=== PATIENT | male | born 1960 | race African-American/Black ===

== ENCOUNTER 2017-05-10 16:10 | Emergency (ER) | payer MEDICARE, MEDICAID ==
[2017-05-10] MEDS ORDERED: Lisinopril 10 MG TAB ONE (16:40)
[2017-05-10 16:57] LABS: #Basophils 0.1 thou/uL (0.0-0.2); #Eosinphils 0.5 thou/uL (0.0-0.7); #Lymphocytes 3.2 thou/uL (1.20-3.40); #Monocytes 0.6 thou/uL (0.11-0.59); #Neutrophils 5.5 thou/uL (1.40-6.50); %Lymphocytes 32.3 % (21.0-51.0); %Monocytes 6.4 % (0.0-10.0); Hematocrit 46.2 % (42.0-52.0); Red Blood Cell (RBC) Count 5.29 mill/uL (4.70-6.10); White Blood Cell (WBC) Count 9.9 thou/uL (4.8-10.8)
[2017-05-10 17:16] LABS: Anion Gap 14 mmol/L (10-20); BUN (Urea Nitrogen) 13 mg/dL (8.4-25.7); Calc. Creatinine Clearance 0 mL/min (70-130); Calcium 9.8 mg/dL (7.8-10.44); Carbon Dioxide 24 mmol/L (22-29); Chloride 105 mmol/L (98-107); Estimated GFR-MDRD 90
== END 2017-05-10 18:30 | disposition home or self-care (01) ==
LOC: ERS 16:10
DX: I10 Essential (primary) hypertension (principal); E11.9 Type 2 diabetes mellitus without complications; E78.5 Hyperlipidemia, unspecified; F17.210 Nicotine dependence, cigarettes, uncomplicated; Z79.4 Long term (current) use of insulin; Z79.899 Other long term (current) drug therapy
CPT/HCPCS: 36415; 80048; 85025; 99283

== ENCOUNTER 2017-07-05 12:30 | Outpatient (CLI) | payer MEDICARE, MEDICAID ==
--- NOTE | 2017-07-05 15:55 | ULT ---
TESTICULAR ULTRASOUND 07/05/17 HISTORY: Hydrocele, unspecified. Patient also complains of left sided testicular pain which comes and goes. FINDINGS/IMPRESSION: The right testicle measures 2.6 cm x 3.5 cm x 2.4 cm with the left testicle measuring 2.2 cm x 3.2 cm x 1.9 cm. No testicular mass is seen bilaterally. There is homogeneous echotexture of each testicle. A few very tiny punctate echogenic foci are seen within the right testicle which may represent tiny punctate calcifications related to microlithiasis. The epididymides demonstrate a normal sonographic appearance bilaterally. There is a minimal amount o f fluid adjacent to each testicle which is slightly greater on the left. There is fluid on the right is probably physiologic in origin with slightly greater fluid on the left which may represent a borde rline very small hydrocele. Doppler evaluation of each testicle with spectral analysis and color flow evaluation demonstrates art erial flow. IMPRESSION: 1. Right testicular microlithiasis. No testicular mass is seen bilaterally, and arterial flow is seen in each testicle. 2. Very small left hydrocele. POS: [facility]
== END 2017-07-05 12:31 | disposition home or self-care (01) ==
LOC: ULT 12:30
PROVIDERS: ATTEND Urology
DX: N43.3 Hydrocele, unspecified (principal); Z87.438 Personal history of other diseases of male genital organs; N50.89 Other specified disorders of the male genital organs
CPT/HCPCS: 76870; 93976

== ENCOUNTER 2017-08-26 10:23 | Emergency (ER) | payer MEDICAID, MEDICARE ==
[2017-08-26 11:13] LABS: #Eosinphils 0.1 thou/uL (0.0-0.7); #Lymphocytes 3.7 thou/uL (1.20-3.40); #Neutrophils 7.8 thou/uL (1.40-6.50); %Basophils 0.4 % (0.0-1.0); %Eosinophils 0.8 % (0.0-10.0); %Lymphocytes 28.9 % (21.0-51.0); %Monocytes 7.8 % (0.0-10.0); %Neutrophils 62.1 % (42.0-75.0); Hemoglobin 13.9 g/dL (14.0-18.0); Mean Corpuscular HGB CONC 32.2 g/dL (32.0-36.0); Mean Corpuscular Hemoglobin 28.2 pg (27.0-31.0); Mean Corpuscular Volume 87.6 fl (80.0-94.0); Mean Platelet Volume 9.6 fL (7.4-10.4); Platelet Count 193 thou/uL (130-400); RBC Distribution Width 12.3 % (11.5-14.5); Red Blood Cell (RBC) Count 4.92 mill/uL (4.70-6.10); White Blood Cell (WBC) Count 12.6 thou/uL (4.8-10.8)
[2017-08-26] MEDS ORDERED: Ondansetron ODT 4 MG TAB ONE (11:27)
[2017-08-26 11:40] LABS: ALT (SGPT) 10 U/L (8-55); AST (SGOT) 11 U/L (5-34); Albumin 3.9 g/dL (3.5-5.0); Alkaline Phosphatase 95 U/L (40-150); Anion Gap 11 mmol/L (10-20); BUN (Urea Nitrogen) 18 mg/dL (8.4-25.7); Bilirubin, Total 0.5 mg/dL (0.2-1.2); Calc. Creatinine Clearance 0 mL/min (70-130); Calcium 10.1 mg/dL (7.8-10.44); Carbon Dioxide 28 mmol/L (22-29); Chloride 106 mmol/L (98-107); Estimated GFR-MDRD Greater than 90; Globulin 3.3 g/dL (2.4-3.5); Glucose 132 mg/dL (70-105); Lipase 65 U/L (8-78); Potassium 3.7 mmol/L (3.5-5.1); Protein, Total 7.2 g/dL (6.0-8.3); Sodium 141 mmol/L (136-145)
== END 2017-08-26 12:09 | disposition home or self-care (01) ==
LOC: ERS 10:23
DX: E86.0 Dehydration (principal); E11.9 Type 2 diabetes mellitus without complications; E78.5 Hyperlipidemia, unspecified; I10 Essential (primary) hypertension; G89.29 Other chronic pain; F17.210 Nicotine dependence, cigarettes, uncomplicated; Z79.891 Long term (current) use of opiate analgesic; Z79.899 Other long term (current) drug therapy; Z79.4 Long term (current) use of insulin
CPT/HCPCS: 36415; 36416; 80053; 83690; 85025; 99284; Q0162

== ENCOUNTER 2017-11-01 08:28 | Outpatient (CLI) | payer MEDICARE, MEDICAID | END 2017-11-01 08:29 | disposition home or self-care (01) | LOC: BICMRI 08:28 | PROVIDERS: ATTEND Physician Assistant Medical | DX: M23.52 Chronic instability of knee, left knee (principal); M54.12 Radiculopathy, cervical region; M54.16 Radiculopathy, lumbar region; M17.12 Unilateral primary osteoarthritis, left knee; M24.10 Other articular cartilage disorders, unspecified site | CPT/HCPCS: 72141; 72148 ==

== ENCOUNTER 2018-01-29 08:29 | Outpatient (CLI) | payer MEDICARE, MEDICAID ==
[2018-01-29 10:51] LABS: Anion Gap 12 mmol/L (10-20); BUN (Urea Nitrogen) 18 mg/dL (8.4-25.7); Calc. Creatinine Clearance 0 mL/min (70-130); Calcium 9.3 mg/dL (7.8-10.44); Carbon Dioxide 24 mmol/L (22-29); Chloride 109 mmol/L (98-107); Estimated GFR-MDRD 53; Glucose 223 mg/dL (70-105); Potassium 4.6 mmol/L (3.5-5.1); Sodium 140 mmol/L (136-145)
== END 2018-01-29 08:30 | disposition home or self-care (01) ==
LOC: LABBT 08:29
PROVIDERS: ATTEND Neurological Surgery
DX: Z01.818 Encounter for other preprocedural examination (principal); M54.12 Radiculopathy, cervical region
CPT/HCPCS: 80048; 93005; 93010

== ENCOUNTER 2018-02-03 05:55 | Day surgery (SDC) | payer MEDICARE, MEDICAID ==
[2018-01-29 08:51] VITALS: BMI 36.5
[2018-02-03] MEDS ORDERED: Levofloxacin 500 mg/D5W 100 ml Premix Bag ONE (06:16)
[2018-02-03] MEDS ORDERED: Clindamycin/D5W 900 mg/50 ml Premix Bag ONE (06:16)
[2018-02-03] MEDS ORDERED: Thrombin 5000 UNITS/5 ML VIAL ONE (06:51)
[2018-02-03] MEDS ORDERED: Fentanyl 100 MCG/2 ML VIAL ONE ×4 (06:55→08:49)
[2018-02-03] MEDS ORDERED: Midazolam HCl 2 mg/2 ml Vial ONE (06:57)
--- NOTE | 2018-02-03 08:36 | OP ---
DATE OF PROCEDURE: 02/03/2018 SURGEON: Sid Urbina M.D. SALESPERSON FLYING SQUAD: Jacek Donato PA-C. INDICATION: Pain. DIAGNOSIS: Cervical radiculopathy. PROCEDURE: Anterior cervical discectomy and fusion C6-7. ANESTHESIA: General. TECHNIQUE: The patient was brought into the operating room and placed under general anesthesia. He was placed on the table in supine position. A transverse incision was planned over the lateral aspec t of the neck on the right. After prepping and draping and after an appropriate operative pause, the incision was created. The underlying platysma muscle was identified and incised. A blunt tissue pl ane anterior to the sternocleidomastoid muscle was used to gain access to the prevertebral space. Se lf-retaining retractors were placed in the wound for optimal exposure. After confirming the appropri ate level with C-arm fluoroscopy, an annulotomy was performed in the C6-7 disk space. All disk mater ial as well as anterior and posterior osteophytes were removed. After a complete decompression, a C6 -7 a 6-mm lordotic PEEK cage packed with allograft and autograft material was placed within the inter body space. An anterior cervical plate was then fashioned to the front of the spine and secured with a total of 4 fixed screws. Midline and lateral structures were inspected and found to be free from significant trauma. The wound was irrigated. Hemostasis was maintained throughout. The wound was t hen closed in anatomic layers and a pressure dressing was applied. There were no known procedural complications.
[2018-02-03] MEDS ORDERED: Morphine 4 MG/ML VIAL ONE ×2 (08:56→09:44)
[2018-02-03] MEDS ORDERED: Ondansetron HCl/PF 4 MG/2 ML Vial ONE (09:44)
[2018-02-03] MEDS ORDERED: Glycopyrrolate 0.2 MG/ML 5 ML SYRINGE ONE (09:44)
[2018-02-03] MEDS ORDERED: PROPOFOL 200 MG/20 ML VIAL ONE (09:44)
[2018-02-03] MEDS ORDERED: Lidocaine 1% PF 5 ML VIAL ONE ×2 (09:44)
[2018-02-03] MEDS ORDERED: PROVENTIL INHALER 6.7 G (200 INHALATIONS) ONE (09:44)
== END 2018-02-03 11:10 | disposition hospice, home (50) ==
LOC: SDC 05:55
PROVIDERS: ATTEND Neurological Surgery
PROC: 0RG10A0 Fusion of Cervical Vertebral Joint with Interbody Fusion Device, Anterior Approach, Anterior Column, Open Approach (ICD-10-PCS; principal; 2018-02-03)
PROC: 0RT30ZZ Resection of Cervical Vertebral Disc, Open Approach (ICD-10-PCS; 2018-02-03)
DX: M54.12 Radiculopathy, cervical region (principal); M54.16 Radiculopathy, lumbar region; K21.9 Gastro-esophageal reflux disease without esophagitis; F17.210 Nicotine dependence, cigarettes, uncomplicated; N52.9 Male erectile dysfunction, unspecified; I12.9 Hypertensive chronic kidney disease with stage 1 through stage 4 chronic kidney disease, or unspecified chronic kidney disease; E11.22 Type 2 diabetes mellitus with diabetic chronic kidney disease; N18.1 Chronic kidney disease, stage 1; Z79.4 Long term (current) use of insulin; Z79.51 Long term (current) use of inhaled steroids; Z79.899 Other long term (current) drug therapy; Z88.0 Allergy status to penicillin
CPT/HCPCS: 20930; 20937; 22551; 22853; 76001; 82962; 96374 ×3; C1713; C1776; 36416; J0131; J1956; J2250; J2270; J3010; J3490

== ENCOUNTER 2018-05-01 10:52 | Outpatient (CLI) | payer MEDICARE, MEDICAID ==
--- NOTE | 2018-05-01 12:36 | RAD ---
CERVICAL SPINE 3 VIEWS: HISTORY: A 58-year-old male with a history of cervical radiculopathy, M54.12. Followup after neck surgery. FINDINGS: Anterior cervical fusion changes noted at C6-C7. There is some multilevel disk-osteophytosis as well as some minimal uncovertebral and facet arthrosis changes. No significant malalignment. No signifi cant abnormal prevertebral soft tissue swelling. IMPRESSION: Anterior cervical fusion changes at C6-C7. Generalized spondylosis. POS: [facility]
== END 2018-05-01 10:53 | disposition home or self-care (01) ==
LOC: TBSIIMAG 10:52
PROVIDERS: ATTEND Neurological Surgery
DX: M47.22 Other spondylosis with radiculopathy, cervical region (principal); Z98.1 Arthrodesis status
CPT/HCPCS: 72040

== ENCOUNTER 2018-05-14 12:25 | Outpatient (CLI) | payer MEDICARE, MEDICAID ==
[2018-05-14 14:20] LABS: Hemoglobin 13.2 g/dL (14.0-18.0); Mean Corpuscular HGB CONC 30.2 g/dL (32.0-36.0); Mean Corpuscular Volume 89.3 fL (78.0-98.0); Mean Platelet Volume 10.6 fL (7.4-10.4); Platelet Count 207 thou/uL (130-400); RBC Distribution Width 12.6 % (11.5-14.5); Red Blood Cell (RBC) Count 4.91 mill/uL (4.70-6.10); White Blood Cell (WBC) Count 9.3 thou/uL (4.8-10.8)
[2018-05-14 14:29] LABS: INR-International Normal Ratio 0.9; PTT 51.3 SEC (22.9-36.1); Prothrombin Time 12.2 SEC (12.0-14.7)
[2018-05-14 14:33] LABS: Bilirubin Negative (Negative); Blood, Urine Small (Negative); Clarity CLEAR (Clear); Glucose, Urine (Dipstick) Negative (Negative); Leukocyte Small (Negative); Nitrite Positive (Negative); Protein, Urine (Dipstick) 100 mg/dL (Neg-Trace); Specific Gravity, Urine 1.017 (1.002-1.036); Urobilinogen 0.2 mg/dL (0.2-1.0); pH, Urine 6.5 (5.0-9.0)
[2018-05-14 14:35] LABS: Bacteria/HPF 4+ HPF (None Seen); Hyaline Casts/LPF 4-6 HYALINE CAST LPF (0-3 Hyaline); Pathc Cast-AUWi Flag 0.58 (0-2.49); RBC/HPF 0-3 HPF (0-3)
[2018-05-14 14:45] LABS: Anion Gap 11 mmol/L (10-20); BUN (Urea Nitrogen) 22 mg/dL (8.4-25.7); Calc. Creatinine Clearance 0 mL/min (70-130); Calcium 9.3 mg/dL (7.8-10.44); Carbon Dioxide 24 mmol/L (22-29); Chloride 108 mmol/L (98-107); Estimated GFR-MDRD 67; Glucose 150 mg/dL (70-105); Potassium 4.4 mmol/L (3.5-5.1); Sodium 139 mmol/L (136-145)
[2018-05-14 14:46] LABS: Transitional Epithelial 0-3 HPF (0-3)
--- NOTE | 2018-05-17 10:30 | EKG ---
Test Reason : Blood Pressure : / mmHG Vent. Rate : 073 BPM Atrial Rate : 073 BPM P-R Int : 136 ms QRS Dur : 106 ms QT Int : 400 ms P-R-T Axes : 028 -41 016 degrees QTc Int : 440 ms Normal sinus rhythm Left axis deviation Incomplete right bundle branch block Voltage criteria for left ventricular hypertrophy Abnormal ECG When compared with ECG of 29-JAN-2018 09:39, No significant change was found Confirmed by DR. Bety OSHEA ([id number]) on 05/17/2018 10:29:54 AM Referred By: SHREYA Confirmed By:DR. Bety OSHEA
== END 2018-05-14 12:26 | disposition home or self-care (01) ==
LOC: LABBT 12:25
PROVIDERS: ATTEND Urology
DX: Z01.818 Encounter for other preprocedural examination (principal); N40.1 Benign prostatic hyperplasia with lower urinary tract symptoms; R31.29 Other microscopic hematuria; Z87.440 Personal history of urinary (tract) infections
CPT/HCPCS: 80048; 81001; 85027; 85610; 85730; 87077; 87086; 87186; 93005; 93010

== ENCOUNTER 2018-07-21 06:32 | Outpatient (CLI) | payer MEDICARE, MEDICAID ==
[2018-07-21 15:55] LABS: Hemoglobin 13.6 g/dL (14.0-18.0); Mean Corpuscular HGB CONC 31.9 g/dL (32.0-36.0); Mean Corpuscular Hemoglobin 28.3 pg (27.0-31.0); Mean Corpuscular Volume 88.8 fL (78.0-98.0); Mean Platelet Volume 9.7 fL (7.4-10.4); Platelet Count 209 thou/uL (130-400); RBC Distribution Width 11.9 % (11.5-14.5); White Blood Cell (WBC) Count 8.4 thou/uL (4.8-10.8)
[2018-07-21 16:02] LABS: INR-International Normal Ratio 0.9; Prothrombin Time 12.5 SEC (12.0-14.7)
[2018-07-21 16:04] LABS: Bilirubin Negative (Negative); Blood, Urine Negative (Negative); Clarity CLEAR (Clear); Glucose, Urine (Dipstick) 100 mg/dL (Negative); Leukocyte Negative (Negative); Nitrite Negative (Negative); Protein, Urine (Dipstick) 30 mg/dL (Neg-Trace); Specific Gravity, Urine 1.022 (1.002-1.036)
[2018-07-21 16:07] LABS: Bacteria/HPF None Seen HPF (None Seen); Hyaline Casts/LPF 0-3 HYALINE CAST LPF (0-3 Hyaline); Pathc Cast-AUWi Flag 0.14 (0-2.49); Squamous Epithelial 0-3 HPF (0-3); WBC/HPF 0-3 HPF (0-3)
[2018-07-21 16:13] LABS: Anion Gap 14 mmol/L (10-20); BUN (Urea Nitrogen) 16 mg/dL (8.4-25.7); Calc. Creatinine Clearance 0 mL/min (70-130); Calcium 9.6 mg/dL (7.8-10.44); Carbon Dioxide 25 mmol/L (22-29); Chloride 104 mmol/L (98-107); Estimated GFR-MDRD 65; Glucose 146 mg/dL (70-105); Potassium 5.1 mmol/L (3.5-5.1); Sodium 138 mmol/L (136-145)
--- NOTE | 2018-07-21 16:51 | RAD ---
CHEST 2 VIEWS: COMPARISON: 06/13/2016. HISTORY: Preoperative exam. FINDINGS: Normal cardiac silhouette. Pulmonary vessels and hilum are normal. Costophrenic angles are clear. No masses or consolidation. No pneumothorax or osseous abnormalities. Cervical fusion hardware is n oted. IMPRESSION: No acute cardiopulmonary process. POS: [facility]
== END 2018-07-21 06:33 | disposition home or self-care (01) ==
LOC: LABBT 06:32
PROVIDERS: ATTEND Urology
DX: Z01.818 Encounter for other preprocedural examination (principal); N40.1 Benign prostatic hyperplasia with lower urinary tract symptoms; N52.9 Male erectile dysfunction, unspecified; N43.3 Hydrocele, unspecified; R31.29 Other microscopic hematuria; R35.0 Frequency of micturition; E13.9 Other specified diabetes mellitus without complications; N35.819 Other urethral stricture, male, unspecified site; Z87.891 Personal history of nicotine dependence; Z87.440 Personal history of urinary (tract) infections
CPT/HCPCS: 71046; 80048; 81001; 85027; 85610; 85730; 87086; 93005; 93010

== ENCOUNTER 2018-07-29 16:19 | Outpatient (CLI) | payer MEDICARE, MEDICAID | END 2018-07-29 16:20 | disposition home or self-care (01) | LOC: LABBT 16:19 | PROVIDERS: ATTEND Urology | DX: Z01.812 Encounter for preprocedural laboratory examination (principal); N43.3 Hydrocele, unspecified; R31.29 Other microscopic hematuria; R35.0 Frequency of micturition; N35.819 Other urethral stricture, male, unspecified site; N40.1 Benign prostatic hyperplasia with lower urinary tract symptoms; N52.9 Male erectile dysfunction, unspecified; E13.9 Other specified diabetes mellitus without complications; Z87.440 Personal history of urinary (tract) infections; Z87.891 Personal history of nicotine dependence | CPT/HCPCS: 86850; 86900; 86901 ==

== ENCOUNTER 2018-08-04 07:29 | Observation (INO) | payer MEDICARE, MEDICAID ==
[2018-08-04] MEDS ORDERED: Sodium Chloride 0.9% 100 ML ONE (08:59)
[2018-08-04] MEDS ORDERED: cefTRIAXone\\ROCEPHIN 2 GM VIAL ONE (08:59)
[2018-08-04] MEDS ORDERED: Fentanyl 100 MCG/2 ML VIAL ONE (09:59)
[2018-08-04] MEDS ORDERED: Midazolam HCl 2 mg/2 ml Vial ONE (09:59)
[2018-08-04] MEDS ORDERED: Iothalamate Meglumine 60% 50 ML VIAL FS ONE (10:30)
[2018-08-04] MEDS ORDERED: Acetaminophen 500 MG TAB PO PRN (11:34)
[2018-08-04] MEDS ORDERED: Insulin Regular 300 UNITS/3 ML VIAL SC PRN (11:34)
[2018-08-04] MEDS ORDERED: Bisacodyl 10 MG SUPP PR PRN (11:34)
[2018-08-04] MEDS ORDERED: hydrALAZINE 20 MG/ML VIAL SLOW IVP PRN ×2 (11:34)
[2018-08-04] MEDS ORDERED: HYDROcodone/Acetaminophen 5/325 mg Tablet PO PRN ×2 (11:34)
[2018-08-04] MEDS ORDERED: Mag-Al 1200 mg/1200 mg/30 ML UDCUP PO PRN (11:34)
[2018-08-04] MEDS ORDERED: diphenhydrAMINE 50 MG/ML VIAL IVP PRN (11:34)
[2018-08-04] MEDS ORDERED: Oxybutynin 5 MG TAB PO PRN (11:34)
[2018-08-04] MEDS ORDERED: Dextrose 50% Abboject 50 ML SYRINGE SLOW IVP PRN (11:34)
[2018-08-04] MEDS ORDERED: Ondansetron PF 4 MG/2 ML Vial IVP PRN (11:34)
[2018-08-04] MEDS ORDERED: Dextrose 5% in Water 1,000 ML IV PRN (11:34)
[2018-08-04] MEDS ORDERED: BECLOMETHASONE DIPROPIONATE 10.6 GM IH PRN (11:38)
[2018-08-04] MEDS ORDERED: Fluticasone Propionate Nasal Spray 16 gm Bottle NASAL PRN (11:38)
[2018-08-04] MEDS ORDERED: Ondansetron HCl/PF 4 MG/2 ML Vial IVP PRN (11:48)
[2018-08-04] MEDS ORDERED: Promethazine HCl 25 MG/ML VIAL SLOW IVP PRN (11:48)
[2018-08-04 12:11] LABS: #Basophils 0.1 thou/uL (0.0-0.2); #Eosinphils 0.5 thou/uL (0.0-0.7); #Lymphocytes 4.1 thou/uL (1.20-3.40); #Monocytes 0.8 thou/uL (0.11-0.59); #Neutrophils 6.3 thou/uL (1.40-6.50); %Basophils 0.9 % (0.0-1.0); %Eosinophils 4.1 % (0.0-10.0); %Lymphocytes 34.9 % (21.0-51.0); %Monocytes 6.4 % (0.0-10.0); %Neutrophils 53.7 % (42.0-75.0); Hemoglobin 12.2 g/dL (14.0-18.0); Mean Corpuscular HGB CONC 31.8 g/dL (32.0-36.0); Mean Corpuscular Hemoglobin 28.3 pg (27.0-31.0); Mean Corpuscular Volume 88.8 fL (78.0-98.0); Platelet Count 206 thou/uL (130-400); RBC Distribution Width 11.9 % (11.5-14.5); Red Blood Cell (RBC) Count 4.32 mill/uL (4.70-6.10); White Blood Cell (WBC) Count 11.7 thou/uL (4.8-10.8)
--- NOTE | 2018-08-04 12:11 | OP ---
DATE OF PROCEDURE: 08/04/2018 PRIMARY CARE PHYSICIAN: Dr. Varsha Oden. PREOPERATIVE DIAGNOSES: 1. A 58-year-old male with history of recurrent urinary tract infection. 2. History of benign prostatic hyperplasia. 3. History of proximal penile/bulbar urethral stricture, 14-Togolese caliber. POSTOPERATIVE DIAGNOSES: 1. A 58-year-old male with history of recurrent urinary tract infection. 2. History of benign prostatic hyperplasia. 3. History of proximal penile/bulbar urethral stricture, 14-Togolese caliber. PROCEDURES PERFORMED: Cystoscopy, transurethral resection of prostate, urethral stricture dilatation, direct vision internal urethrotomy, and 22-Togolese 3-way Oneil catheter placement. ANESTHESIA: General. COMPLICATIONS: None apparent. DISPOSITION: To recovery room in stable condition. SPECIMEN: TUR of prostate. INTRAOPERATIVE FINDINGS: 1. Bulbar proximal penile urethral stricture approximately 14-Togolese as previous cystoscopy noted. 2. Mild BPH component with high median bar. 3. Bladder grossly unremarkable. INDICATIONS FOR PROCEDURE AND HISTORY: Mr. Charles is a 58-year-old male with history of diabetes and chronic back pain, who initially presented for evaluation of subclinical left mild hydrocele. He was subsequently found to have a bulbar stricture and recurrent UTI. He has had multiple recurrent UTIs, quinolone resistant, currently on Bactrim single strength for recurrent UTI. Urine culture is negative. He presents today for direct vision internal urethrotomy and transurethral resection of prostate. He desired to proceed with TURP component , so that he may discontinue his BPH meds. Risks and complications and indications for the procedure was reviewed with him in detail including, but not limited to, bleeding, pain, infection, injury to adjacent organs, urosepsis, possible clot retention, incontinence, persistent recurrent UTI, and possible secondary procedure. Moreover, risks and complications of general anesthesia and surgery including PE, DVT, perioperative morbidity, mortality, and DVT was reviewed with him in detail. He has been fully informed regarding recurrent nature of urethral stricture disease and desire to proceed with trial of direct vision internal urethrotomy. DESCRIPTION OF PROCEDURE: After an informed consent was signed, the patient was taken to the operating room, placed in a dorsal lithotomy position with the genitalia area prepped and draped in the usual surgical sterile fashion. Broad-spectrum antibiotics and bilateral ANISH hose SCDs were placed. A 21-Togolese cystoscope was passed without difficulty, again demonstrating a proximal penile bulbar urethral stricture, 14-Togolese caliber. I was able to bypass the stricture without significant trauma. Prostatic urethra was entered demonstrating bilobar hyperplasia, mildly obstructing with high median bar. Bladder was entered, which demonstrated no evidence of bladder lesions, stones, or tumors. The UOs were well away from the bladder neck. At this time, I did passively dilated the stricture to 25-Togolese sheath. We subsequently passed a 26-Togolese continuous resectoscope with a visual obturator without difficulty. We performed a transurethral resection of prostate in a classic Joseluis fashion with gyrus bipolar. Although, his prostate was small with mild BPH component, he did have a high median bar, tight bladder neck. With subsequent resection of the prostate performed, which demonstrated wide bladder neck at the end of the procedure. Good hemostasis was obtained and all prostatic chips were evacuated with Ellik evacuator. I re-staged his bulbar proximal penile urethral stricture, although was passively dilated. There was some annular soft residual stricture. Therefore, direct vision internal urethrotomy scope was passed under direct visualization and a cold knife was utilized to release the bulbar stricture uneventfully. With the wire in-situ in the bladder, I passed a 22- Togolese 3-way Oneil catheter without significant issues. A 30 mL was insufflated and his continuous bladder irrigation started with clear output. He will be observed overnight with CBI. If clear, we will discharge with indwelling Oneil catheter to gravity for approximately 1 week. We will cover him with antibiotics based on his previous urine culture sensitivity. Job ID: [id number] [facility]
[2018-08-04 12:46] LABS: Anion Gap 14 mmol/L (10-20); BUN (Urea Nitrogen) 14 mg/dL (8.4-25.7); Calc. Creatinine Clearance 139 mL/min (70-130); Calcium 8.6 mg/dL (7.8-10.44); Carbon Dioxide 19 mmol/L (22-29); Chloride 111 mmol/L (98-107); Estimated GFR-MDRD Greater than 90; Glucose 84 mg/dL (70-105); Sodium 140 mmol/L (136-145)
[2018-08-04] MEDS: Sodium Chloride 0.9% 1,000 ML IV SCH ×2 (14:35→19:56)
[2018-08-04] MEDS: HYDROcodone/Acetaminophen 10/325 mg Tablet PO SCH ×3 (14:48→20:00)
[2018-08-04] MEDS ORDERED: Ondansetron PF 4 MG/2 ML Vial ONE (15:52)
[2018-08-04] MEDS ORDERED: PROPOFOL 200 MG/20 ML VIAL ONE (15:52)
[2018-08-04] MEDS ORDERED: Glycopyrrolate 0.2 MG/ML 5 ML SYRINGE ONE (15:52)
[2018-08-04] MEDS ORDERED: Lidocaine 1% PF 5 ML VIAL ONE (15:52)
[2018-08-04] MEDS ORDERED: Rocuronium Bromide 10 MG/ML (10ML VIAL) ONE (15:52)
[2018-08-04 16:54] VITALS: BMI 36.7
[2018-08-04] MEDS: metFORMIN 500 MG TAB PO SCH (17:45)
[2018-08-04] MEDS: Gemfibrozil 600 MG TAB PO SCH (17:45)
[2018-08-04] MEDS ORDERED: Mometasone Furoate 120 PUFF 220 MCG INH PRN (18:30)
[2018-08-04] MEDS: Lisinopril 20 MG TAB PO SCH (20:00)
[2018-08-04] MEDS: Docusate 100 MG CAP PO SCH (20:01)
[2018-08-04] MEDS: Famotidine/PF 20 mg/2ml Vial SLOW IVP SCH (20:01)
[2018-08-04] MEDS: Cyclobenzaprine 10 MG TAB PO SCH (20:01)
[2018-08-04] MEDS ORDERED: Rosuvastatin 20 MG TAB PO SCH (21:00)
[2018-08-04] MEDS ORDERED: TRAMADOL HCL 300 MG PO SCH (21:00)
[2018-08-04] MEDS ORDERED: Dutasteride 0.5 MG CAP PO SCH (21:00)
[2018-08-04] MEDS ORDERED: Insulin Glargine 40 UNITS in Pre-Filled Syringe 1 EACH SC SCH (21:00)
[2018-08-04] MEDS ORDERED: Non-Formulary Item 1 EACH (Insulin Glargine,Hum.Rec.Anlog [Lantus Solostar] 40 UNIT) SQ SCH (21:00)
[2018-08-05] MEDS: Gemfibrozil 600 MG TAB PO SCH (06:33)
[2018-08-05 07:41] LABS: #Eosinphils 0.4 thou/uL (0.0-0.7); #Lymphocytes 3.2 thou/uL (1.20-3.40); #Monocytes 0.6 thou/uL (0.11-0.59); #Neutrophils 4.1 thou/uL (1.40-6.50); %Basophils 0.6 % (0.0-1.0); %Eosinophils 5.1 % (0.0-10.0); %Lymphocytes 37.9 % (21.0-51.0); %Monocytes 7.5 % (0.0-10.0); Hemoglobin 11.1 g/dL (14.0-18.0); Mean Corpuscular HGB CONC 32.5 g/dL (32.0-36.0); Mean Corpuscular Hemoglobin 28.3 pg (27.0-31.0); Mean Corpuscular Volume 87.1 fL (78.0-98.0); Mean Platelet Volume 9.6 fL (7.4-10.4); Platelet Count 194 thou/uL (130-400); RBC Distribution Width 11.9 % (11.5-14.5); Red Blood Cell (RBC) Count 3.92 mill/uL (4.70-6.10); White Blood Cell (WBC) Count 8.4 thou/uL (4.8-10.8)
[2018-08-05 07:55] LABS: Anion Gap 10 mmol/L (10-20); BUN (Urea Nitrogen) 12 mg/dL (8.4-25.7); Calc. Creatinine Clearance 156 mL/min (70-130); Calcium 8.2 mg/dL (7.8-10.44); Carbon Dioxide 23 mmol/L (22-29); Chloride 112 mmol/L (98-107); Estimated GFR-MDRD Greater than 90; Glucose 130 mg/dL (70-105); Potassium 4.1 mmol/L (3.5-5.1); Sodium 141 mmol/L (136-145)
[2018-08-05] MEDS: metFORMIN 500 MG TAB PO SCH (08:32)
[2018-08-05] MEDS: Sodium Chloride 0.9% 1,000 ML IV SCH (08:34)
[2018-08-05] MEDS ORDERED: Gabapentin 300 MG CAP PO SCH (09:00)
[2018-08-05] MEDS ORDERED: Amlodipine 5 MG TAB PO SCH (09:00)
[2018-08-05] MEDS ORDERED: Hydrochlorothiazide 25 MG TAB PO SCH (09:00)
[2018-08-05] MEDS: HYDROcodone/Acetaminophen 10/325 mg Tablet PO SCH (09:57)
[2018-08-05] MEDS: Cyclobenzaprine 10 MG TAB PO SCH (09:59)
[2018-08-05] MEDS: Docusate 100 MG CAP PO SCH (10:00)
[2018-08-05] MEDS: Famotidine/PF 20 mg/2ml Vial SLOW IVP SCH (10:00)
[2018-08-05] MEDS ORDERED: cefTRIAXone\\ROCEPHIN 1 GM in Sodium Chloride 0.9% 100 ML IVPB SCH (10:00)
[2018-08-05] MEDS: Lisinopril 20 MG TAB PO SCH (10:05)
[2018-08-05 11:32] VITALS: BP 138/80; TEMP 97.7
--- NOTE | 2018-08-06 04:53 | DIS ---
DATE OF ADMISSION: 08/04/2018 DATE OF DISCHARGE: 08/05/2018 BRIEF HOSPITAL COURSE: Mr. Charles is a 58-year-old male with history of BPH and dual medical therapy, urethral stricture with recurrent E coli UTI. The patient underwent cardiac clearance, underwent transurethral resection of prostate, direct vision internal urethrotomy. This morning, his CBI was held, urine output has remained clear. His vital signs are stable. Labs stable with no significant hematuria component of concern. On morning rounds, his vital signs are stable. Pain well controlled. Urine output is clear yellow. He agrees to be discharged home. Pathology is pending. PROCEDURES: Cystoscopy, transurethral resection of prostate, direct vision internal urethrotomy. DISPOSITION: Home with self-care. DISCHARGE MEDICATIONS: He may resume his home medications, no aspirin and ibuprofen products. He may discontinue his Avodart and Flomax. DISCHARGE INSTRUCTIONS: The patient was discharged with indwelling urethral Oneil catheter to gravity. His CBI port was plugged. Leg bag and gravity bag instructions were provided. followup appointment next Saturday, August 13 at 1 p.m. for catheter removal, voiding trial. Job ID: [id number] [facility]
== END 2018-08-05 12:00 | disposition home or self-care (01) ==
LOC: SDC 07:29 → SURG A 11:34
PROVIDERS: ADMIT Urology; ATTEND Urology
PROC: 0VT08ZZ Resection of Prostate, Via Natural or Artificial Opening Endoscopic (ICD-10-PCS; principal; 2018-08-04)
DX: N40.1 Benign prostatic hyperplasia with lower urinary tract symptoms (principal); N13.8 Other obstructive and reflux uropathy; N35.912 Unspecified bulbous urethral stricture, male; N39.0 Urinary tract infection, site not specified; N52.9 Male erectile dysfunction, unspecified; F17.210 Nicotine dependence, cigarettes, uncomplicated; G89.29 Other chronic pain; M54.9 Dorsalgia, unspecified; K21.9 Gastro-esophageal reflux disease without esophagitis; E78.5 Hyperlipidemia, unspecified; I12.9 Hypertensive chronic kidney disease with stage 1 through stage 4 chronic kidney disease, or unspecified chronic kidney disease; E11.22 Type 2 diabetes mellitus with diabetic chronic kidney disease; N18.1 Chronic kidney disease, stage 1; N43.3 Hydrocele, unspecified; E66.01 Morbid (severe) obesity due to excess calories; Z68.36 Body mass index [BMI] 36.0-36.9, adult; Z79.2 Long term (current) use of antibiotics; Z79.4 Long term (current) use of insulin; Z79.899 Other long term (current) drug therapy; Z88.0 Allergy status to penicillin; Z88.1 Allergy status to other antibiotic agents
CPT/HCPCS: 52601; 80048 ×2; 82962 ×2; 85025 ×2; 88305; 88341; 88342; 96361 ×2; 96374; 96375; 96376; C1769; G0378; 36415; 36416; J0696; J1825; J2001; J2250; J2405; J2704; J3010; J7050; Q9961; S0028

== ENCOUNTER 2018-11-18 12:28 | Outpatient (CLI) | payer MEDICARE, MEDICAID ==
--- NOTE | 2018-11-18 14:06 | RAD ---
Chest 2 views HISTORY: Preop. COMPARISON: 07/21/2018. FINDINGS: Cardiac silhouette and pulmonary vasculature are unremarkable. Mediastinum is midline. No c onfluent airspace consolidation, pneumothorax, or pleural fluid. Postoperative changes lower cervical spine. Degenerative changes thoracic spine. IMPRESSION: No active cardiopulmonary abnormalities are demonstrated.
[2018-11-18 14:42] LABS: Bilirubin Negative (Negative); Blood, Urine Moderate (Negative); Clarity CLOUDY (Clear); Glucose, Urine (Dipstick) Negative (Negative); Hemoglobin 11.6 g/dL (14.0-18.0); Leukocyte Negative (Negative); Mean Corpuscular Hemoglobin 28.4 pg (27.0-31.0); Mean Corpuscular Volume 86.2 fL (78.0-98.0); Mean Platelet Volume 10.1 fL (7.4-10.4); Nitrite Negative (Negative); Platelet Count 213 thou/uL (130-400); Protein, Urine (Dipstick) 100 mg/dL (Neg-Trace); RBC Distribution Width 11.9 % (11.5-14.5); Red Blood Cell (RBC) Count 4.08 mill/uL (4.70-6.10); Specific Gravity, Urine 1.016 (1.002-1.036); Urobilinogen 0.2 mg/dL (0.2-1.0); White Blood Cell (WBC) Count 9.4 thou/uL (4.8-10.8)
[2018-11-18 14:45] LABS: Bacteria/HPF None Seen HPF (None Seen); Pathc Cast-AUWi Flag 1.76 (0-2.49); RBC/HPF 0-3 HPF (0-3)
[2018-11-18 14:50] LABS: PTT 62.3 SEC (22.9-36.1); Prothrombin Time 13.2 SEC (12.0-14.7)
[2018-11-18 14:57] LABS: Hyaline Casts/LPF 0-3 HYALINE CAST LPF (0-3 Hyaline); Other Casts/LPF 0-3 COARSE GRAN LPF (0-3 Hyaline); Renal Epithelial 0-3 HPF (0-3)
[2018-11-18 15:18] LABS: Anion Gap 13 mmol/L (10-20); BUN (Urea Nitrogen) 18 mg/dL (8.4-25.7); Calc. Creatinine Clearance 0 mL/min (70-130); Calcium 9.2 mg/dL (7.8-10.44); Carbon Dioxide 23 mmol/L (22-29); Chloride 107 mmol/L (98-107); Estimated GFR-MDRD 39; Glucose 221 mg/dL (70-105); Potassium 3.7 mmol/L (3.5-5.1); Sodium 139 mmol/L (136-145)
== END 2018-11-18 12:29 | disposition home or self-care (01) ==
LOC: LABBT 12:28
PROVIDERS: ATTEND Urology
DX: Z01.818 Encounter for other preprocedural examination (principal); C61 Malignant neoplasm of prostate
CPT/HCPCS: 71046; 80048; 81001; 84153; 85027; 85610; 85730; 87081; 87086; 93005; 93010

== ENCOUNTER 2018-11-25 13:41 | Outpatient (CLI) | payer MEDICARE, MEDICAID ==
--- NOTE | 2018-11-25 15:45 | ULT ---
Renal ultrasound: 11/25/2018 COMPARISON: None HISTORY: Hematuria, urinary tract infection, renal insufficiency TECHNIQUE: Multiplanar hernández scale sonographic imaging of the kidneys and urinary bladder obtained. FINDINGS: Right kidney measures 9.9 x 5.7 x 5.8 cm and left kidney measures 10.9 x 6.7 x 6.6 cm. No hydronephrosis on either side. There is a punctate echogenic focus within the superior and within the inferior aspect of the right renal cortex, suggesting punctate calcifications. A small left renal cyst measures 1.5 x 1.4 x 1.3 cm. Urinary bladder is partially decompressed and gr ossly unremarkable. IMPRESSION: No hydronephrosis. Transcribed Date/Time: 11/25/2018 4:22 PM
== END 2018-11-25 13:42 | disposition home or self-care (01) ==
LOC: BICULT 13:41
PROVIDERS: ATTEND Urology
DX: R31.29 Other microscopic hematuria (principal); N28.9 Disorder of kidney and ureter, unspecified; Z87.440 Personal history of urinary (tract) infections
CPT/HCPCS: 76770

== ENCOUNTER 2018-12-01 06:39 | Day surgery (SDC) | payer MEDICARE, MEDICAID ==
[2018-11-18 12:57] VITALS: BMI 33.5
[2018-12-01] MEDS ORDERED: MEROPENEM 1 GM/50 ML 1 GM in Premix Bag 1 BAG IVPB SCH (08:00)
[2018-12-01] MEDS ORDERED: Fentanyl 100 MCG/2 ML VIAL ONE (09:28)
[2018-12-01] MEDS ORDERED: Propofol 500 MG/50 ML VIAL ONE (09:28)
[2018-12-01] MEDS ORDERED: Phenazopyridine HCl 97.5 MG TABLET ONE (11:10)
--- NOTE | 2018-12-01 11:39 | OP ---
DATE OF PROCEDURE: 12/01/2018 PREOPERATIVE DIAGNOSES: 1. Pathologic T1a [place] score 3+3, status post transurethral resection of the prostate. 2. History of urethral stricture, status post direct visual internal urethrotomy .. POSTOPERATIVE DIAGNOSES: 1. Pathologic T1a Corazon score 3+3, status post transurethral resection of the prostate. 2. History of urethral stricture, status post direct visual internal urethrotomy .. PROCEDURES PERFORMED: Transrectal ultrasound 12-core needle biopsy of the prostate. ANESTHESIA: TIVA. COMPLICATIONS: None apparent. SPECIMENS: Twelve-core needle prostate biopsy. INDICATIONS FOR PROCEDURE AND HISTORY: Mr. Charles is a 58-year-old male with a history of diabetes, known to me with BPH, urethral stricture, recurrent UTI. This has resolved. Status post TURP, DVIU. The patient voiding without significant issues. However, unfortunately the TUR specimen performed August 2018, demonstrates [place] sum 3+3, less than 5% of the core positive consistent with pathologic T1a [place] score 3+3 prostate cancer with unremarkable BRANDEE. His PSA on record is 0.1 in October 2018. He presents today for standard 12-core needle prostate biopsy. Risks, complications, and indications were reviewed including , but not limited to: Bleeding, pain, infection, injury to adjacent organs, urosepsis. Bleeding, pain, infection, and chronic pain were reviewed with him in detail. Preop urine culture negative and he desires to proceed. DESCRIPTION OF PROCEDURE: After an informed consent was signed, the patient was taken to the operating room, placed in a dorsal lithotomy position with the genital area prepped and draped in the usual surgical sterile fashion. He was provided meropenem on-call, he was placed in left lateral decubitus position with pressure points padded and protected after TIVA anesthesia was administered. Digital rectal exam demonstrated no discrete nodularity of concern. A transrectal ultrasound prostate volume study was performed demonstrating a TUR defect on ultrasound. The prostate measured urethral length of 2.7, width of 3.5, height of 1.3, volume on today's exam demonstrates 7 g. His previous prostate volume demonstrated consistent with 22 g. We had performed 12-needle prostate standard core biopsy, which he tolerated uneventfully. I will watch him for a voiding parameters. Anticipate he will be discharged uneventfully. He is discharged with Omnicef 300 mg one p.o. b.i.d. for 7 days, #[id number]. He will follow up with me next Saturday to review pathology. Job ID: [id number] [facility]
[2018-12-01] MEDS ORDERED: PROPOFOL 200 MG/20 ML VIAL ONE (16:33)
== END 2018-12-01 12:55 | disposition home or self-care (01) ==
LOC: SDC 06:39
PROVIDERS: ATTEND Urology
PROC: 0VB03ZX Excision of Prostate, Percutaneous Approach, Diagnostic (ICD-10-PCS; principal; 2018-12-01)
DX: N41.1 Chronic prostatitis (principal); N40.0 Benign prostatic hyperplasia without lower urinary tract symptoms; I12.9 Hypertensive chronic kidney disease with stage 1 through stage 4 chronic kidney disease, or unspecified chronic kidney disease; E11.22 Type 2 diabetes mellitus with diabetic chronic kidney disease; N18.1 Chronic kidney disease, stage 1; E66.01 Morbid (severe) obesity due to excess calories; N52.9 Male erectile dysfunction, unspecified; N43.3 Hydrocele, unspecified; K21.9 Gastro-esophageal reflux disease without esophagitis; E78.5 Hyperlipidemia, unspecified; Z85.46 Personal history of malignant neoplasm of prostate; Z90.79 Acquired absence of other genital organ(s); Z68.33 Body mass index [BMI] 33.0-33.9, adult; Z88.0 Allergy status to penicillin; Z88.1 Allergy status to other antibiotic agents; Z79.891 Long term (current) use of opiate analgesic; Z79.4 Long term (current) use of insulin; Z79.899 Other long term (current) drug therapy
CPT/HCPCS: 36416; 88305; J2185; J2704; J3010

== ENCOUNTER 2019-03-19 07:34 | Outpatient (CLI) | payer MEDICARE, MEDICAID ==
[2019-03-19 10:33] LABS: #Basophils 0.1 thou/uL (0.0-0.2); #Eosinphils 0.4 thou/uL (0.0-0.7); #Lymphocytes 2.7 thou/uL (1.20-3.40); #Monocytes 0.6 thou/uL (0.11-0.59); #Neutrophils 4.6 thou/uL (1.40-6.50); %Basophils 0.8 % (0.0-1.0); %Eosinophils 4.2 % (0.0-10.0); %Lymphocytes 32.7 % (21.0-51.0); %Monocytes 7.1 % (0.0-10.0); %Neutrophils 55.1 % (42.0-75.0); Hemoglobin 12.2 g/dL (14.0-18.0); Mean Corpuscular Volume 84.8 fL (78.0-98.0); Mean Platelet Volume 10.4 fL (7.4-10.4); Platelet Count 207 thou/uL (130-400); RBC Distribution Width 12.1 % (11.5-14.5); Red Blood Cell (RBC) Count 4.36 mill/uL (4.70-6.10); White Blood Cell (WBC) Count 8.3 thou/uL (4.8-10.8)
[2019-03-19 10:47] LABS: INR-International Normal Ratio 0.9; Prothrombin Time 12.4 SEC (12.0-14.7)
[2019-03-19 10:51] LABS: Bacteria/HPF None Seen HPF (None Seen); Bilirubin Negative (Negative); Blood, Urine Negative (Negative); Clarity Clear (Clear); Glucose, Urine (Dipstick) Normal (Negative); Leukocyte Negative Leu/uL (Negative); Nitrite Negative (Negative); Protein, Urine (Dipstick) 50 mg/dL (Neg-Trace); RBC/HPF 0-3 HPF (0-3); Squamous Epithelial 0-3 HPF (0-3); Urobilinogen Normal mg/dL (Less than 2); WBC/HPF 0-3 HPF (0-3)
[2019-03-19 10:56] LABS: Anion Gap 17 mmol/L (10-20); BUN (Urea Nitrogen) 14 mg/dL (8.4-25.7); Calc. Creatinine Clearance 0 mL/min (70-130); Calcium 9.9 mg/dL (7.8-10.44); Carbon Dioxide 23 mmol/L (22-29); Chloride 104 mmol/L (98-107); Estimated GFR-MDRD 81; Glucose 170 mg/dL (70-105); Sodium 139 mmol/L (136-145)
== END 2019-03-19 07:35 | disposition home or self-care (01) ==
LOC: LABBT 07:34
PROVIDERS: ATTEND Orthopaedic Surgery
DX: Z01.818 Encounter for other preprocedural examination (principal); M17.0 Bilateral primary osteoarthritis of knee
CPT/HCPCS: 80048; 81001; 85025; 85610; 87081; 93005; 93010

== ENCOUNTER 2019-03-30 06:39 | Inpatient (IN) | payer MEDICARE, MEDICAID ==
--- NOTE | 2019-03-17 11:38 | HP ---
HISTORY OF PRESENT ILLNESS: The patient is a 58 year old male with a long history of progressive bilateral knee pain, right greater than left. He has had no injury. He has had progressive symptoms at rest, restriction of activities, anti-inflammatory medications, previous injections. The pain is interfering with day-to-day activities including walking, getting dressed, and sleeping. PAST MEDICAL HISTORY: The patient has chronic back pain and is under the pain management under the direction of Dr. Enio Lux in [place], [place]. He also has had surgery for prostate enlargement. , reflux, and hypertension. He does have a history of lupus anticoagulant with no evidence of antiphospholipid syndrome. We did obtain cardiac clearance for his prostate surgery. CURRENT MEDICATIONS: Include, 1. Gabapentin. 2. Metformin. 3. . 4. Lisinopril-hydrochlorothiazide. 5. Cyclobenzaprine. 6. Nexium. 7. Lantus insulin. 8. Crestor. 9. Amlodipine. 10. Fluticasone. 11. Tramadol. 12. Hydrocodone. ALLERGIES: HE IS ALLERGIC TO PENICILLIN. FAMILY HISTORY: Otherwise unremarkable. SOCIAL HISTORY: Otherwise unremarkable. REVIEW OF SYSTEMS: Otherwise unremarkable. PHYSICAL EXAMINATION: GENERAL: Reveals a healthy heavyset male. HEENT: Unremarkable. NECK: Supple. CHEST: Clear. HEART: Regular rate and rhythm. ABDOMEN: Soft, nontender. RECTAL: Deferred. GENITAL: Deferred. EXTREMITIES: Pertinent findings related to his knees. There is moderate varus deformity bilaterally. There is tenderness and crepitus over the medial joint line bilaterally, right greater than left. Range of motion of the right knee is 15 to 95 degrees. Range of motion of the left knee is 10 to 100 degrees. There is trace valgus laxity bilaterally, right slightly greater than left. NEUROVASCULAR: Exam is intact. No palpable distal pulses. There is an antalgic gait. IMAGING DATA: X-rays of both knees reveal [id number] collapse medially, right slightly greater than left. IMPRESSION: 1. Degenerative arthritis of both knees, right symptomatic more than left. 2. Adult onset diabetes. 3. Hypertension. 4. History of prostate enlargement. 5. History of lupus anticoagulant without evidence of antiphospholipid syndrome. PLAN: Right total knee replacement. He will eventually require a staged left total knee replacement. The nature of the surgery, length of recovery, and potential complications such as infection, loss of motion, incomplete relief, delayed wound healing, neurovascular injury, thromboembolic phenomena, possible transfusion, need for revision have been discussed in detail. Job ID: [id number]
[2019-03-30] MEDS ORDERED: Vancomycin HCl 1.5 GM in Sodium Chloride 0.9% 250 ML 300 ML IVPB SCH ×2 (07:15→19:00)
[2019-03-30] MEDS ORDERED: Tranexamic Acid 1,000 MG/10 ML VIAL ONE ×2 (07:18→13:46)
[2019-03-30] MEDS ORDERED: Levofloxacin 500 mg/D5W 100 ml Premix Bag ONE (07:18)
[2019-03-30] MEDS ORDERED: Sodium Chloride 0.9% 100 ML ONE (07:18)
[2019-03-30] MEDS ORDERED: CEFAZOLIN 2 GM in Premix Bag 1 BAG IVPB SCH (07:30)
[2019-03-30] MEDS ORDERED: Midazolam HCl 2 mg/2 ml Vial ONE (07:56)
[2019-03-30] MEDS ORDERED: Fentanyl 100 MCG/2 ML VIAL ONE ×7 (07:56→13:46)
[2019-03-30] MEDS ORDERED: Ropivacaine HCl/PF 250 ML in Premix Bag 1 BAG NERVE BLCK SCH (08:58)
[2019-03-30] MEDS ORDERED: Promethazine HCl 25 MG/ML VIAL IM PRN (08:58)
[2019-03-30] MEDS ORDERED: Ondansetron PF 4 MG/2 ML Vial IVP PRN ×2 (08:58→14:34)
[2019-03-30] MEDS ORDERED: HYDROcodone/Acetaminophen 10/325 mg Tablet PO PRN ×3 (08:58→14:34)
[2019-03-30] MEDS ORDERED: Zolpidem Tartrate 5 MG TAB PO PRN ×2 (08:58→14:34)
[2019-03-30] MEDS ORDERED: traMADol HCl 50 MG TAB PO PRN ×2 (08:58)
[2019-03-30] MEDS ORDERED: Fentanyl 100 MCG/2 ML VIAL SLOW IVP PRN ×2 (08:59→14:34)
[2019-03-30] MEDS ORDERED: Bupivacaine/Epinephrine 0.25% 30 ML VIAL ONE (10:00)
[2019-03-30] MEDS ORDERED: Tranexamic Acid 1,000 MG in Sodium Chloride 0.9% 100 ML IVPB SCH ×2 (12:00→14:34)
[2019-03-30] MEDS ORDERED: Ketorolac Tromethamine 30 MG/ML VIAL IVP SCH ×2 (12:00→15:00)
--- NOTE | 2019-03-30 12:20 | RAD ---
XR Knee Rt 2 View HISTORY: Knee prosthesis placement. Postop film. COMPARISON: None. FINDINGS: A total knee prosthesis has been placed which is in good position without evidence of fract ure. IMPRESSION: Placement of total knee prosthesis.
--- NOTE | 2019-03-30 12:37 | OP ---
DATE OF PROCEDURE: 03/30/2019 RESEARCH AND EVALUATION MANAGER: Fela Hawthorne PA-C ANESTHESIA: General plus femoral plus adductor canal and sciatic nerve blocks. PREOPERATIVE DIAGNOSIS: Degenerative arthritis, right knee. POSTOPERATIVE DIAGNOSIS: Degenerative arthritis, right knee. PROCEDURE PERFORMED: Right total knee replacement with cemented Cameron Triathlon components (#5 femoral component, #5 primary tibial baseplate with 9 mm CS plastic insert, and all-plastic patellar component). DESCRIPTION OF PROCEDURE: After satisfactory anesthesia was induced in the supine position, sequential compression device was placed on the nonoperative leg throughout the procedure. The right leg was then prepped and draped in routine sterile fashion. The right leg was elevated and exsanguinated with an Esmarch bandage and the tourniquet inflated to 300 mmHg. A gently curved medial parapatellar incision was made, carried down through the subcutaneous tissues and bleeding points controlled with Bovie cautery. Medial parapatellar arthrotomy was performed and the patella dislocated laterally and portion of the fat pad were excised for exposure. There was marked tricompartmental degenerative arthritis, especially medially with large areas of exposed bone and large osteophytes. Osteophytes and meniscal remnants removed. Using the [place] Mars pinless navigation system and the appropriate guides, the distal femoral and proximal tibial articular surfaces were excised with an oscillating saw to accept the trial components. It was felt that #5 femoral component, #5 primary tibial baseplate with 9 mm CS plastic insert gave appropriate size, fit, stability, and correction of the preoperative deformity. The patellar articular surface was excised to accept an all-plastic A32 patellar component. There was good range of motion and good patellar tracking. The trial components were removed. The knee was copiously irrigated with pulsatile lavage and the bony surfaces thoroughly cleaned and dried. The permanent components were then cemented in a single stage using one packet of cement, premixed with 1 g of tobramycin powder. Excess cement was removed. There was a good fit and stability of components. The knee was copiously irrigated with pulsatile lavage. The medial retinaculum and quadriceps mechanism was closed with interrupted #2 Vicryl and a running #2 Quill. Subcutaneous tissues were closed with a running subcuticular 0 Quill suture. Skin was infiltrated with 30 mL of 0.25% Marcaine with epinephrine. The skin was closed with running subcuticular 3-0 Monoderm and SurgiSeal skin adhesive. A sterile bulky compressive dressing was applied and the tourniquet deflated after 80 minutes. The foot promptly pinked up, and the patient was awakened and taken to the recovery room in stable condition. Sequential compression device was applied on his operated leg. There are no apparent intraoperative complications. The estimated blood loss was less than 100 mL. Job ID: [id number]
[2019-03-30] MEDS ORDERED: Bupivacaine HCl 0.5%/Epinephrine 1:200,000/PF 30 ml Vial ONE (13:36)
[2019-03-30] MEDS ORDERED: Ropivacaine 0.2% HCl/PF (40 MG/20 ML VIAL) ONE (13:36)
[2019-03-30] MEDS ORDERED: diphenhydrAMINE 25 MG CAP PO PRN (14:34)
[2019-03-30] MEDS ORDERED: Acetaminophen 325 MG TAB PO PRN (14:34)
[2019-03-30] MEDS ORDERED: Fluticasone Propionate Nasal Spray 16 gm Bottle NASAL PRN (14:34)
[2019-03-30] MEDS ORDERED: Mometasone Furoate 120 PUFF 220 MCG INH PRN (14:34)
[2019-03-30] MEDS ORDERED: Promethazine HCl 25 MG/ML VIAL SLOW IVP PRN (14:34)
[2019-03-30] MEDS ORDERED: Senokot S 8.6-50 MG TAB PO SCH (14:45)
[2019-03-30] MEDS ORDERED: Amlodipine 5 MG TAB PO SCH (14:45)
[2019-03-30] MEDS ORDERED: Lisinopril 20 MG TAB PO SCH (14:45)
[2019-03-30] MEDS ORDERED: Gemfibrozil 600 MG TAB PO SCH (15:00)
[2019-03-30] MEDS ORDERED: Hydrochlorothiazide 25 MG TAB PO SCH (15:00)
[2019-03-30] MEDS ORDERED: Multivitamin W/ Minerals 1 TAB PO SCH (15:00)
[2019-03-30] MEDS ORDERED: Aspirin 81 mg Enteric Coated Tablet PO SCH (15:00)
[2019-03-30] MEDS ORDERED: metFORMIN 500 MG TAB PO SCH (15:00)
[2019-03-30] MEDS ORDERED: Ketorolac Tromethamine 30 MG/ML VIAL ONE (15:08)
[2019-03-30] MEDS ORDERED: PROPOFOL 200 MG/20 ML VIAL ONE (15:08)
[2019-03-30] MEDS ORDERED: Lidocaine 1% PF 5 ML VIAL ONE (15:08)
[2019-03-30] MEDS: HYDROcodone/Acetaminophen 10/325 mg Tablet PO PRN ×2 (16:34→20:41)
[2019-03-30] MEDS: Sodium Chloride 0.9% 1,000 ML IV SCH ×2 (16:59→17:00)
[2019-03-30] MEDS: Ketorolac Tromethamine 30 MG/ML VIAL IVP SCH ×2 (17:50→23:31)
[2019-03-30] MEDS: traMADol HCl 50 MG TAB PO PRN (18:00)
[2019-03-30] MEDS: Fentanyl 100 MCG/2 ML VIAL SLOW IVP PRN (18:56)
[2019-03-30] MEDS: diphenhydrAMINE 50 MG CAP PO SCH (20:38)
[2019-03-30] MEDS: Rosuvastatin 20 MG TAB PO SCH (20:38)
[2019-03-30] MEDS: Aspirin 81 mg Enteric Coated Tablet PO SCH (20:38)
[2019-03-30] MEDS: Cyclobenzaprine 10 MG TAB PO SCH (20:39)
[2019-03-30] MEDS: Lisinopril 20 MG TAB PO SCH (20:39)
[2019-03-30] MEDS: Gabapentin 400 MG CAP PO SCH (20:39)
[2019-03-30] MEDS: Senokot S 8.6-50 MG TAB PO SCH (20:39)
[2019-03-30] MEDS: metFORMIN 500 MG TAB PO SCH (20:40)
[2019-03-30 20:45] VITALS: BMI 35.4
[2019-03-30] MEDS: Insulin Glargine 40 UNITS in Pre-Filled Syringe SC SCH (20:48)
[2019-03-30] MEDS ORDERED: Non-Formulary Item 1 EACH (Insulin Glargine,Hum.Rec.Anlog [Lantus Solostar] 40 UNIT) SQ SCH (21:00)
[2019-03-31] MEDS: HYDROcodone/Acetaminophen 10/325 mg Tablet PO PRN ×5 (00:45→21:06)
[2019-03-31] MEDS: Sodium Chloride 0.9% 1,000 ML IV SCH ×3 (01:01→20:57)
[2019-03-31 04:51] LABS: Hemoglobin 10.3 g/dL (14.0-18.0); Mean Corpuscular HGB CONC 32.8 g/dL (32.0-36.0); Mean Corpuscular Hemoglobin 28.3 pg (27.0-31.0); Mean Corpuscular Volume 86.3 fL (78.0-98.0); Platelet Count 165 thou/uL (130-400); Red Blood Cell (RBC) Count 3.63 mill/uL (4.70-6.10); White Blood Cell (WBC) Count 8.8 thou/uL (4.8-10.8)
[2019-03-31] MEDS: Ketorolac Tromethamine 30 MG/ML VIAL IVP SCH ×4 (06:09→23:27)
[2019-03-31] MEDS: Gemfibrozil 600 MG TAB PO SCH ×2 (06:18→16:46)
[2019-03-31] MEDS ORDERED: Dextrose 5% in Water 1,000 ML IV PRN (06:26)
[2019-03-31] MEDS ORDERED: Dextrose 50% Abboject 50 ML SYRINGE SLOW IVP PRN (06:26)
[2019-03-31] MEDS: HumaLOG 300 UNITS/3 ML VIAL SC PRN ×4 (07:11→21:08)
[2019-03-31] MEDS: metFORMIN 500 MG TAB PO SCH ×2 (09:04→21:04)
[2019-03-31] MEDS: Aspirin 81 mg Enteric Coated Tablet PO SCH ×2 (09:05→21:05)
[2019-03-31] MEDS: Hydrochlorothiazide 25 MG TAB PO SCH (09:05)
[2019-03-31] MEDS: Multivitamin W/ Minerals 1 TAB PO SCH (09:05)
[2019-03-31] MEDS: Senokot S 8.6-50 MG TAB PO SCH ×2 (09:05→21:06)
[2019-03-31] MEDS: Lisinopril 20 MG TAB PO SCH ×2 (09:06→21:04)
[2019-03-31] MEDS: Amlodipine 5 MG TAB PO SCH (09:07)
[2019-03-31] MEDS: traMADol HCl 50 MG TAB PO PRN ×2 (10:59→17:01)
[2019-03-31] MEDS: Fentanyl 100 MCG/2 ML VIAL SLOW IVP PRN (12:19)
--- NOTE | 2019-03-31 14:04 | PDOC.HOSPP ---
- Subjective Encounter Date: 03/31/19 Encounter Time: 14:00 Subjective: pt up in bed complains of pain to his right knee - Objective Vital Signs & Weight: Vital Signs (12 hours) Temp Pulse Resp BP BP BP Pulse Ox 03/31/19 09:07 94 157/71 H 03/31/19 09:06 157/71 H 03/31/19 08:09 98.6 F 94 18 152/71 H 98 03/31/19 08:00 94 L 03/31/19 04:00 98.1 F 94 18 159/75 H 99 Weight Admit Weight 240 lb Weight 240 lb I&O: 03/30/19 03/31/19 04/01/19 06:59 06:59 06:59 Intake Total 1701 2280 Output Total 1600 Balance 1701 680 Result Diagrams: 03/31/19 04:22 Additional Labs: Accuchecks 03/31/19 03/31/19 03/30/19 11:31 06:25 20:50 POC Glucose 198 H 247 H 167 H Hospitalist ROS - Review of Systems Cardiovascular: denies: chest pain, palpitations, orthopnea, paroxysmal noc. dyspnea, edema, light headedness, other Gastrointestinal: denies: nausea, vomiting, abdominal pain, diarrhea, constipation, melena, hematochezia, other Genitourinary: denies: dysuria, frequency, incontinence, hematuria, retention, other Musculoskeletal: reports: other (knee pain) - Medication Medications: Active Medications Generic Name Dose Route Start Last Admin Trade Name Freq PRN Reason Stop Dose Admin Hydrocodone Bitart/Acetaminophen 2 tab 03/30/19 14:34 03/31/19 13:19 [place] 10/325 PO 2 tab Q4H PRN Administration Severe Pain (7-10) Amlodipine Besylate 5 mg 03/31/19 09:00 03/31/19 09:07 Norvasc PO 5 mg QAM REECE Administration Aspirin 81 mg 03/30/19 21:00 03/31/19 09:05 Ecotrin PO 81 mg BID REECE Administration Cholecalciferol 5,000 units 03/30/19 21:00 03/30/19 20:37 Vitamin D3 PO 5,000 units HS REECE Administration Cyclobenzaprine HCl 10 mg 03/30/19 21:00 03/30/19 20:39 Flexeril PO 10 mg HS REECE Administration Diphenhydramine HCl 50 mg 03/30/19 21:00 03/30/19 20:38 Benadryl PO 50 mg HS REECE Administration Fentanyl 50 mcg 03/30/19 14:34 03/31/19 12:19 Sublimaze SLOW IVP 50 mcg Q30MIN PRN Administration Moderate Pain (4-6) Gabapentin 1,200 mg 03/30/19 21:00 03/30/19 20:39 Neurontin PO 1,200 mg HS REECE Administration Gemfibrozil 600 mg 03/31/19 07:30 03/31/19 06:18 Lopid PO 600 mg BID-AC REECE Administration Hydrochlorothiazide 25 mg 03/31/19 09:00 03/31/19 09:05 Hydrochlorothiazide PO 25 mg DAILY REECE Administration Ropivacaine 250 ml/ Device 250 mls @ 10 mls/hr 03/30/19 08:58 03/31/19 13:09 NERVE BLCK 250 mls INF REECE Administration Sodium Chloride 1,000 mls @ 100 mls/hr 03/30/19 14:34 03/31/19 11:07 Normal Saline 0.9% IV Not Given .Q10H REECE Insulin Glargine 40 units/ 0.4 mls @ 0 mls/hr 03/30/19 21:00 03/30/19 20:48 Miscellaneous Medication SC 0.4 mls HS REECE Administration Insulin Human Lispro 0 units 03/31/19 06:26 03/31/19 12:29 Humalog SC 2 unit .MILD SLIDING SCALE PRN Administration Mild Correctional Scale Iron/Minerals/Multivitamins 1 tab 03/31/19 09:00 03/31/19 09:05 Theragran M PO 1 tab DAILY REECE Administration Ketorolac Tromethamine 30 mg 03/30/19 18:00 03/31/19 11:01 Toradol IVP 04/01/19 15:01 30 mg 0600,1200,1800,2359 REECE Administration Lisinopril 20 mg 03/30/19 21:00 03/31/19 09:06 Zestril PO 20 mg BID REECE Administration Metformin HCl 1,000 mg 03/30/19 21:00 03/31/19 09:04 Glucophage PO 1,000 mg BID REECE Administration Pantoprazole Sodium 40 mg 03/30/19 21:00 03/30/19 20:44 Protonix PO 40 mg HS REECE Administration Rosuvastatin Calcium 40 mg 03/30/19 21:00 03/30/19 20:38 Crestor PO 40 mg HS REECE Administration Senna/Docusate Sodium 2 tab 03/30/19 21:00 03/31/19 09:05 Senokot S PO 2 tab BID REECE Administration Tramadol HCl 100 mg 03/30/19 14:34 03/31/19 10:59 Ultram PO 100 mg Q6H PRN Administration Moderate Pain (4-6) - Exam Heart: negative: RRR, no murmur, no gallops, no rubs, normal peripheral pulses, irregular, diminshed peripheral pulses, murmur present, II/IV, III/IV Respiratory: negative: CTAB, no wheezes, no rales, no ronchi, normal chest expansion, no tachypnea, normal percussion, rales, rhonchi, tachypneic, wheezes Gastrointestinal: negative: soft, non-tender, non-distended, normal bowel sounds , no palpable masses, no hepatomegaly, no splenomegaly, no bruit, no guarding, no rigidity, tender to palpation, distended, diminished bowl sounds, voluntary guarding Extremities: negative: no cyanosis, no clubbing, no edema, 1+ LE edema, 2+ LE edema, clubbing Hosp A/P (1) HTN (hypertension) Code(s): I10 - ESSENTIAL (PRIMARY) HYPERTENSION Status: Acute (2) Diabetes Code(s): E11.9 - TYPE 2 DIABETES MELLITUS WITHOUT COMPLICATIONS Status: Acute - Plan pt's blood pressure controlled will continue to monitor. will need sleep study as outpatient. dvt ppx and pain management per ortho.
--- NOTE | 2019-03-31 14:06 | PDOC.HOSPP ---
- Subjective Encounter Date: 03/30/19 Encounter Time: 16:00 Subjective: pt up in bed family at bedside. - Objective Vital Signs & Weight: Vital Signs (12 hours) Temp Pulse Resp BP BP BP Pulse Ox 03/31/19 09:07 94 157/71 H 03/31/19 09:06 157/71 H 03/31/19 08:09 98.6 F 94 18 152/71 H 98 03/31/19 08:00 94 L 03/31/19 04:00 98.1 F 94 18 159/75 H 99 Weight Admit Weight 240 lb Weight 240 lb I&O: 03/30/19 03/31/19 04/01/19 06:59 06:59 06:59 Intake Total 1701 2280 Output Total 1600 Balance 1701 680 Result Diagrams: 03/31/19 04:22 Additional Labs: Accuchecks 03/31/19 03/31/19 03/30/19 11:31 06:25 20:50 POC Glucose 198 H 247 H 167 H Hospitalist ROS - Review of Systems Respiratory: denies: cough, dry, shortness of breath, hemoptysis, SOB with excertion, pleuritic pain, sputum, wheezing, other Cardiovascular: denies: chest pain, palpitations, orthopnea, paroxysmal noc. dyspnea, edema, light headedness, other Gastrointestinal: denies: nausea, vomiting, abdominal pain, diarrhea, constipation, melena, hematochezia, other - Medication Medications: Active Medications Generic Name Dose Route Start Last Admin Trade Name Freq PRN Reason Stop Dose Admin Hydrocodone Bitart/Acetaminophen 2 tab 03/30/19 14:34 03/31/19 13:19 [place] 10/325 PO 2 tab Q4H PRN Administration Severe Pain (7-10) Amlodipine Besylate 5 mg 03/31/19 09:00 03/31/19 09:07 Norvasc PO 5 mg QAM REECE Administration Aspirin 81 mg 03/30/19 21:00 03/31/19 09:05 Ecotrin PO 81 mg BID REECE Administration Cholecalciferol 5,000 units 03/30/19 21:00 03/30/19 20:37 Vitamin D3 PO 5,000 units HS REECE Administration Cyclobenzaprine HCl 10 mg 03/30/19 21:00 03/30/19 20:39 Flexeril PO 10 mg HS REECE Administration Diphenhydramine HCl 50 mg 03/30/19 21:00 03/30/19 20:38 Benadryl PO 50 mg HS REECE Administration Fentanyl 50 mcg 03/30/19 14:34 03/31/19 12:19 Sublimaze SLOW IVP 50 mcg Q30MIN PRN Administration Moderate Pain (4-6) Gabapentin 1,200 mg 03/30/19 21:00 03/30/19 20:39 Neurontin PO 1,200 mg HS REECE Administration Gemfibrozil 600 mg 03/31/19 07:30 03/31/19 06:18 Lopid PO 600 mg BID-AC REECE Administration Hydrochlorothiazide 25 mg 03/31/19 09:00 03/31/19 09:05 Hydrochlorothiazide PO 25 mg DAILY REECE Administration Ropivacaine 250 ml/ Device 250 mls @ 10 mls/hr 03/30/19 08:58 03/31/19 13:09 NERVE BLCK 250 mls INF REECE Administration Sodium Chloride 1,000 mls @ 100 mls/hr 03/30/19 14:34 03/31/19 11:07 Normal Saline 0.9% IV Not Given .Q10H REECE Insulin Glargine 40 units/ 0.4 mls @ 0 mls/hr 03/30/19 21:00 03/30/19 20:48 Miscellaneous Medication SC 0.4 mls HS REECE Administration Insulin Human Lispro 0 units 03/31/19 06:26 03/31/19 12:29 Humalog SC 2 unit .MILD SLIDING SCALE PRN Administration Mild Correctional Scale Iron/Minerals/Multivitamins 1 tab 03/31/19 09:00 03/31/19 09:05 Theragran M PO 1 tab DAILY REECE Administration Ketorolac Tromethamine 30 mg 03/30/19 18:00 03/31/19 11:01 Toradol IVP 04/01/19 15:01 30 mg 0600,1200,1800,2359 REECE Administration Lisinopril 20 mg 03/30/19 21:00 03/31/19 09:06 Zestril PO 20 mg BID REECE Administration Metformin HCl 1,000 mg 03/30/19 21:00 03/31/19 09:04 Glucophage PO 1,000 mg BID REECE Administration Pantoprazole Sodium 40 mg 03/30/19 21:00 03/30/19 20:44 Protonix PO 40 mg HS REECE Administration Rosuvastatin Calcium 40 mg 03/30/19 21:00 03/30/19 20:38 Crestor PO 40 mg HS REECE Administration Senna/Docusate Sodium 2 tab 03/30/19 21:00 03/31/19 09:05 Senokot S PO 2 tab BID REECE Administration Tramadol HCl 100 mg 03/30/19 14:34 03/31/19 10:59 Ultram PO 100 mg Q6H PRN Administration Moderate Pain (4-6) - Exam Heart: negative: RRR, no murmur, no gallops, no rubs, normal peripheral pulses, irregular, diminshed peripheral pulses, murmur present, II/IV, III/IV Respiratory: negative: CTAB, no wheezes, no rales, no ronchi, normal chest expansion, no tachypnea, normal percussion, rales, rhonchi, tachypneic, wheezes Gastrointestinal: negative: soft, non-tender, non-distended, normal bowel sounds , no palpable masses, no hepatomegaly, no splenomegaly, no bruit, no guarding, no rigidity, tender to palpation, distended, diminished bowl sounds, voluntary guarding Hosp A/P (1) HTN (hypertension) Code(s): I10 - ESSENTIAL (PRIMARY) HYPERTENSION Status: Acute (2) Diabetes Code(s): E11.9 - TYPE 2 DIABETES MELLITUS WITHOUT COMPLICATIONS Status: Acute - Plan pt's pain is currently controlled. will continue his htn and dm meds. Family at bedside updated. pt's blood pressure controlled will continue to monitor. will need sleep study as outpatient. dvt ppx and pain management per ortho.
[2019-03-31] MEDS ORDERED: Lidocaine 2% Viscous Solution 10 ML, Aluminum & Magnesium Hydroxide 30 ML SSW SCH (16:15)
[2019-03-31] MEDS: Gabapentin 400 MG CAP PO SCH (21:05)
[2019-03-31] MEDS: diphenhydrAMINE 50 MG CAP PO SCH (21:05)
[2019-03-31] MEDS: Rosuvastatin 20 MG TAB PO SCH (21:06)
[2019-03-31] MEDS: Cyclobenzaprine 10 MG TAB PO SCH (21:06)
[2019-03-31] MEDS: Insulin Glargine 40 UNITS in Pre-Filled Syringe SC SCH (21:08)
[2019-04-01] MEDS: Ketorolac Tromethamine 30 MG/ML VIAL IVP SCH ×2 (06:15→12:41)
[2019-04-01] MEDS: HYDROcodone/Acetaminophen 10/325 mg Tablet PO PRN ×3 (06:15→14:15)
[2019-04-01] MEDS: HumaLOG 300 UNITS/3 ML VIAL SC PRN ×2 (06:22→12:51)
[2019-04-01] MEDS: Sodium Chloride 0.9% 1,000 ML IV SCH (06:34)
[2019-04-01] MEDS: Gemfibrozil 600 MG TAB PO SCH (06:35)
[2019-04-01 07:18] VITALS: TEMP 98.5
[2019-04-01] MEDS: Aspirin 81 mg Enteric Coated Tablet PO SCH (08:59)
[2019-04-01] MEDS: Amlodipine 5 MG TAB PO SCH (08:59)
[2019-04-01] MEDS: metFORMIN 500 MG TAB PO SCH (09:00)
[2019-04-01] MEDS: Hydrochlorothiazide 25 MG TAB PO SCH (09:00)
[2019-04-01] MEDS: Multivitamin W/ Minerals 1 TAB PO SCH (09:00)
[2019-04-01] MEDS: Senokot S 8.6-50 MG TAB PO SCH (09:00)
[2019-04-01] MEDS: Lisinopril 20 MG TAB PO SCH (09:00)
[2019-04-01 09:01] VITALS: BP 170/80
[2019-04-01] MEDS: traMADol HCl 50 MG TAB PO PRN (09:08)
--- NOTE | 2019-04-02 14:05 | DIS ---
DATE OF ADMISSION: 03/30/2019 DATE OF DISCHARGE: 04/01/2019 This is Fela Hawthorne PA-C dictating a report for Cesar Burt MD. CONSULTANTS: Include [facility]. PREOPERATIVE DIAGNOSIS: Degenerative osteoarthritis, right knee. POSTOPERATIVE DIAGNOSIS: Degenerative osteoarthritis, right knee. PROCEDURE PERFORMED: Right total knee replacement. BRIEF HOSPITAL COURSE: This is a 59-year-old gentleman, who was indicated for the above-mentioned procedure after failing conservative management. He underwent surgical correction. Postoperatively, he was admitted to [place] [address] surgical [facility], where he worked with [facility] physical therapist and occupational therapist. He received postoperative antibiotics and analgesics. [facility] and his general care was managed by [facility]. On postoperative day #2, he was discharged home. DISCHARGE CONDITION: Stable. DISCHARGE DISPOSITION: Home. DISCHARGE INSTRUCTIONS: The patient will follow up with outpatient physical therapy. He will follow up with Dr. Burt as scheduled. He will keep his surgical wound site clean, dry, and bandage intact until followup. DISCHARGE MEDICATIONS: See MAR. Job ID: [id number]
== END 2019-04-01 14:36 | disposition home or self-care (01) | DRG 470 ==
LOC: SDC 06:39 → SJJU 14:36
PROVIDERS: ADMIT Orthopaedic Surgery; ATTEND Orthopaedic Surgery
PROC: 0SRC0J9 Replacement of Right Knee Joint with Synthetic Substitute, Cemented, Open Approach (ICD-10-PCS; principal; 2019-03-30)
DX: M17.0 Bilateral primary osteoarthritis of knee (principal); G89.29 Other chronic pain; K21.9 Gastro-esophageal reflux disease without esophagitis; I10 Essential (primary) hypertension; E11.9 Type 2 diabetes mellitus without complications; Z79.84 Long term (current) use of oral hypoglycemic drugs; Z88.0 Allergy status to penicillin; Z79.4 Long term (current) use of insulin; Z98.890 Other specified postprocedural states; J44.9 Chronic obstructive pulmonary disease, unspecified; E78.5 Hyperlipidemia, unspecified; F17.210 Nicotine dependence, cigarettes, uncomplicated
CPT/HCPCS: 36415; 36416; 85027; C1713; C1776; J0131; J0670; J1815; J1885; J1956; J2001; J2250; J2704; J2795; J3010; J3370; J3490; J7050; Q0163

== ENCOUNTER 2019-05-05 09:38 | Outpatient (CLI) | payer MEDICARE, MEDICAID ==
--- NOTE | 2019-05-05 11:42 | MRI ---
MR OF THE PELVIS WITH AND WITHOUT CONTRAST INDICATION: History of prostate cancer COMPARISON: None TECHNIQUE: Multiplanar, multisequence MR images were obtained of the pelvis with and without IV contr ast. 10 cc of MultiHance was utilized for the examination. The examination was reviewed on a separate PayDragon 3-D workstation for multiplanar metric evaluation. FINDINGS: Prostate size: The prostate measured 3.4 x 2.5 x 2.7cm. 11.83 cc. Peripheral zone: No area of restricted diffusion is seen within the peripheral zone. There is diffuse hazy T2 hypointensity involving the peripheral zone without a focal lesion. Central zone: No suspicious signal abnormality or focal lesion. There is postprocedural change of a p rior TURP. Neural vasculature: No evidence of neurovascular invasion Regional lymphadenopathy: None Dynamic contrast enhancement: Negative. Osseous structures: No suspicious osseous lesion is identified. Additional findings: None.. IMPRESSION: 1. PIRADS 2- Low (clinically significant cancer is unlikely to be present.)
[2019-05-05] MEDS ORDERED: Gadobenate Dimeglumine 529 MG/1 ML (20ML VIAL) ONE (12:00)
== END 2019-05-05 09:39 | disposition home or self-care (01) ==
LOC: TBSIIMAG 09:38
PROVIDERS: ATTEND Urology
DX: C61 Malignant neoplasm of prostate (principal)
CPT/HCPCS: 72197; A9577

== ENCOUNTER 2019-07-13 06:51 | Day surgery (SDC) | payer MEDICARE, MEDICAID ==
[2019-07-10 09:28] VITALS: BMI 35.4
[2019-07-13] MEDS ORDERED: Tranexamic Acid 1,000 MG/10 ML VIAL ONE ×2 (07:32→11:33)
[2019-07-13] MEDS ORDERED: Sodium Chloride 0.9% 100 ML ONE (07:32)
[2019-07-13] MEDS ORDERED: Vancomycin 1.5 GRAM/300 ML BAG 1.5 GM/300 ML BAG ONE (07:32)
[2019-07-13] MEDS ORDERED: Levofloxacin 500 mg/D5W 100 ml Premix Bag ONE (07:32)
[2019-07-13 07:44] LABS: #Basophils 0.1 thou/uL (0.0-0.2); #Eosinphils 1.1 thou/uL (0.0-0.7); #Lymphocytes 2.9 thou/uL (1.20-3.40); #Monocytes 0.6 thou/uL (0.11-0.59); #Neutrophils 4.5 thou/uL (1.40-6.50); %Basophils 0.7 % (0.0-1.0); %Eosinophils 11.5 % (0.0-10.0); %Lymphocytes 31.7 % (21.0-51.0); %Monocytes 6.3 % (0.0-10.0); %Neutrophils 49.8 % (42.0-75.0); Hemoglobin 11.9 g/dL (14.0-18.0); Mean Corpuscular HGB CONC 32.1 g/dL (32.0-36.0); Mean Corpuscular Hemoglobin 27.3 pg (27.0-31.0); Mean Corpuscular Volume 84.9 fL (78.0-98.0); Mean Platelet Volume 9.7 fL (7.4-10.4); Platelet Count 213 thou/uL (130-400); Red Blood Cell (RBC) Count 4.36 mill/uL (4.70-6.10); White Blood Cell (WBC) Count 9.1 thou/uL (4.8-10.8)
[2019-07-13 07:57] LABS: Prothrombin Time 12.9 SEC (12.0-14.7)
[2019-07-13 07:58] LABS: PTT 51.6 SEC (22.9-36.1)
[2019-07-13 08:02] LABS: Anion Gap 13 mmol/L (10-20); BUN (Urea Nitrogen) 17 mg/dL (8.4-25.7); Calc. Creatinine Clearance 108 mL/min (70-130); Calcium 9.5 mg/dL (7.8-10.44); Carbon Dioxide 25 mmol/L (22-29); Chloride 107 mmol/L (98-107); Estimated GFR-MDRD 81; Glucose 106 mg/dL (70-105); Potassium 4.5 mmol/L (3.5-5.1); Sodium 140 mmol/L (136-145)
[2019-07-13 08:13] LABS: Bacteria/HPF None Seen HPF (None Seen); Bilirubin Negative (Negative); Blood, Urine Negative (Negative); Clarity Clear (Clear); Glucose, Urine (Dipstick) Normal (Negative); Leukocyte Negative Leu/uL (Negative); Nitrite Negative (Negative); Protein, Urine (Dipstick) 20 mg/dL (Neg-Trace); RBC/HPF 0-3 HPF (0-3); Squamous Epithelial 0-3 HPF (0-3); Urobilinogen Normal mg/dL (Less than 2); WBC/HPF 0-3 HPF (0-3)
[2019-07-13] MEDS ORDERED: Fentanyl 100 MCG/2 ML VIAL ONE ×5 (08:31→12:58)
[2019-07-13] MEDS ORDERED: Midazolam HCl 2 mg/2 ml Vial ONE (08:31)
[2019-07-13] MEDS ORDERED: Lidocaine 1% w/Epinephrine 1:100K 20 ML VIAL ONE (09:16)
[2019-07-13] MEDS ORDERED: Bupivacaine 0.25% HCL 30 ML VIAL ONE (09:16)
[2019-07-13] MEDS ORDERED: Ondansetron PF 4 MG/2 ML Vial IVP PRN ×2 (09:31→13:18)
[2019-07-13] MEDS ORDERED: Ropivacaine HCl/PF 250 ML in Premix Bag 1 BAG NERVE BLCK SCH (09:31)
[2019-07-13] MEDS ORDERED: traMADol HCl 50 MG TAB PO PRN ×2 (09:31)
[2019-07-13] MEDS ORDERED: HYDROcodone/Acetaminophen 10/325 mg Tablet PO PRN ×3 (09:31→13:18)
[2019-07-13] MEDS ORDERED: Zolpidem Tartrate 5 MG TAB PO PRN ×2 (09:31→13:18)
[2019-07-13] MEDS ORDERED: Promethazine HCl 25 MG/ML VIAL IM PRN ×2 (09:31→10:22)
[2019-07-13] MEDS ORDERED: Fentanyl 100 MCG/2 ML VIAL SLOW IVP PRN (09:32)
[2019-07-13] MEDS ORDERED: Acetaminophen 325 MG TAB PO PRN ×2 (09:33→13:18)
[2019-07-13] MEDS ORDERED: PACU-Morphine 4MG/ML VIAL SLOW IVP PRN (10:22)
[2019-07-13] MEDS ORDERED: HYDROmorphone 2 MG/ML VIAL SLOW IVP PRN (10:22)
[2019-07-13] MEDS ORDERED: Ondansetron HCl/PF 4 MG/2 ML Vial IVP PRN (10:22)
[2019-07-13] MEDS ORDERED: Promethazine HCl 25 MG/ML VIAL SLOW IVP PRN ×2 (10:22→13:18)
[2019-07-13] MEDS ORDERED: Tranexamic Acid 1,000 MG in Sodium Chloride 0.9% 100 ML IVPB SCH ×2 (11:45→13:18)
--- NOTE | 2019-07-13 12:09 | HP ---
HISTORY OF PRESENT ILLNESS: The patient is a 59-year-old male with a long history of progressive degenerative arthritis of both knees, unresponsive to conservative treatment including rest, restriction of activities, injections and anti-inflammatory medications. He underwent right total knee replacement in March 2019 with good results. He has had progressive problems of the left knee, was interfering with day-to-day activities of walking, getting dressed, and sleeping. PAST MEDICAL HISTORY: As noted above. The patient also has a history of diabetes, chronic back pain, reflux, hypertension, and BPH. MEDICATIONS: Present medications include; 1. Gabapentin. 2. Metformin. 3. Gemfibrozil. 4. Lisinopril. 5. Hydrochlorothiazide. 6. Flexeril. 7. Nexium. 8. Lantus. 9. Crestor. 10. Amlodipine. 11. Fluticasone. 12. Tramadol. 13. Multivitamins. ALLERGIES: HE IS ALLERGIC TO PENICILLIN, WHICH CAUSES HIVES. FAMILY HISTORY: Otherwise unremarkable. SOCIAL HISTORY: Otherwise unremarkable. REVIEW OF SYSTEMS: Otherwise unremarkable. PHYSICAL EXAMINATION: GENERAL: This is a healthy male. HEENT: Unremarkable. NECK: Supple. CHEST: Clear. HEART: Regular rate and rhythm. ABDOMEN: Soft and nontender. RECTAL: Deferred. GENITAL: Deferred. EXTREMITIES: Pertinent findings were in the left knee. There is moderate varus deformity. There is tenderness and crepitus over the medial joint line. There is a trace effusion. Range of motion is about 105 degrees. There is pain with range of motion. There is a left antalgic gait. No palpable distal pulses. Neurovascular exam is intact. DIAGNOSTIC STUDIES: X-rays of the left knee reveal [id number] collapse medially. IMPRESSION: 1. Degenerative arthritis left knee. 2. Status post right total knee replacement. 3. History of hypertension. 4. History of diabetes. PLAN: Left total knee replacement. The nature of the surgery, length recovery, potential complications such as infection, loss of motion, incomplete relief, delayed wound healing, neurovascular injury, thromboembolic phenomena, possible transfusion, need for revision have been discussed in detail. Job ID: [id number]
[2019-07-13] MEDS ORDERED: Morphine 4 MG/ML VIAL ONE (12:58)
--- NOTE | 2019-07-13 13:15 | RAD ---
TWO VIEWS OF THE LEFT KNEE: DATE: 07/13/2019. COMPARISON: None. HISTORY: Evaluate knee following arthroplasty. FINDINGS: Postoperative gas and fluid noted within the left knee joint and adjacent soft tissues. There is a t ibial and femoral component demonstrating no evidence for hardware failure. No acute fracture or dis location. There is postoperative change involving the posterior aspect of the patella. There is ath erosclerotic calcification posterior to the left femur. IMPRESSION: Radiographic evidence of recent left total knee arthroplasty. No acute abnormality. POS: NAY
[2019-07-13] MEDS ORDERED: Fluticasone Propionate Nasal Spray 16 gm Bottle NASAL PRN (13:18)
[2019-07-13] MEDS ORDERED: diphenhydrAMINE 25 MG CAP PO PRN (13:18)
--- NOTE | 2019-07-13 13:55 | OP ---
DATE OF PROCEDURE: 07/13/2019 HEATING ELEMENT WINDER: Fela Hawthorne PA-C ANESTHESIA: General plus adductor canal and sciatic nerve blocks. PREOPERATIVE DIAGNOSIS: Degenerative arthritis, left knee. POSTOPERATIVE DIAGNOSIS: Degenerative arthritis, left knee. PROCEDURES PERFORMED: Left total knee replacement with computer-assisted navigation with cemented [place] Triathlon components (#5 femoral component, #4 primary tibial baseplate with 9 mm CS plastic insert, and all-plastic A32 patellar component). DESCRIPTION OF PROCEDURE: After satisfactory anesthesia was induced in the supine position, sequential compression device was placed on the nonoperative leg throughout the procedure. The left leg was then prepped and draped in routine manner. The leg was elevated, exsanguinated with an Esmarch bandage and the tourniquet inflated to 300 mmHg. A gently curved medial parapatellar incision was made, carried through subcutaneous tissues and bleeding points were controlled with Bovie cautery. Medial parapatellar arthrotomy was performed and patella was dislocated laterally and portions of the fat pad were excised for exposure. There was marked degenerative arthritis of the knee of all compartments and there was large areas of exposed bone. Meniscal remnants and osteophytes were removed. Using the Quotefish pinless navigation system and the appropriate guides, the distal femoral and proximal tibial articular surfaces were excised with an oscillating saw to accept the trial components. It was felt that a #5 femoral component, #4 tibial baseplate with 9 mm CS plastic insert gave appropriate size, fit, stability, and correction of the preoperative deformity. The patellar articular surface was excised to accept an all-plastic A32 patellar component. There was good range of motion and good patellar tracking. The trial components were removed. The knee was copiously irrigated with the pulsatile lavage and bony surfaces were thoroughly cleaned and dried. The permanent components were then cemented in a single stage using one packet cement premixed with 1 g of tobramycin powder. Excess cement was removed. There was again good fit and stability of the components. The knee was then copiously irrigated. The medial retinaculum and quadriceps mechanism was closed with interrupted #2 Vicryl and a running #2 Quill. The skin was infiltrated with 50 mL of a mixture of 0.25% Marcaine and 1% lidocaine with epinephrine. The subcutaneous tissues were closed with running 0 Quill suture. The skin closed with running subcuticular 3-0 Monoderm and SurgiSeal skin adhesive. A sterile bulky compressive dressing was applied and the tourniquet deflated after 81 minutes. The foot promptly pinked up. A sequential compression device was applied to his operated leg and he was awakened and taken to the recovery room in stable condition. There were no apparent intraoperative complications. The estimated blood loss was less than 100 mL. Job ID: [id number]
[2019-07-13] MEDS: HYDROcodone/Acetaminophen 10/325 mg Tablet PO PRN ×3 (14:07→23:08)
[2019-07-13] MEDS: Ketorolac Tromethamine 30 MG/ML VIAL IVP SCH ×4 (14:08→23:04)
[2019-07-13] MEDS ORDERED: PHENYLEPHRINE-NS 100 MCG/ML 10 ML SYRINGE ONE (14:38)
[2019-07-13] MEDS ORDERED: Bupivacaine HCl 0.5%/Epinephrine 1:200,000/PF 30 ml Vial ONE (14:38)
[2019-07-13] MEDS ORDERED: ePHEDrine/0.9% NaCl/PF SYRINGE 50 mg/10 ml ONE (14:38)
[2019-07-13] MEDS ORDERED: PROPOFOL 200 MG/20 ML VIAL ONE (14:38)
[2019-07-13] MEDS ORDERED: Ropivacaine 0.2% HCl/PF (40 MG/20 ML VIAL) ONE (14:38)
[2019-07-13] MEDS ORDERED: Lidocaine 1% PF 5 ML VIAL ONE (14:38)
[2019-07-13] MEDS ORDERED: Ondansetron PF 4 MG/2 ML Vial ONE (14:38)
[2019-07-13] MEDS ORDERED: Insulin Regular 300 UNITS/3 ML VIAL SC PRN ×2 (14:44)
[2019-07-13] MEDS ORDERED: Dextrose 5% in Water 1,000 ML IV PRN (14:44)
[2019-07-13] MEDS ORDERED: Dextrose 50% Abboject 50 ML SYRINGE SLOW IVP PRN (14:44)
[2019-07-13] MEDS: Sodium Chloride 0.9% 1,000 ML IV SCH ×2 (15:16→16:59)
[2019-07-13] MEDS: Gemfibrozil 600 MG TAB PO SCH (16:47)
[2019-07-13] MEDS: Mometasone Furoate 120 PUFF 220 MCG INH SCH (19:20)
[2019-07-13] MEDS ORDERED: Vancomycin HCl 1.5 GM in Sodium Chloride 0.9% 250 ML 300 ML IVPB SCH (20:00)
[2019-07-13] MEDS ORDERED: Vancomycin 1.5 GRAM/300 ML BAG 1.5 GM in Premix Bag 1 BAG IVPB SCH (20:00)
[2019-07-13] MEDS: Insulin Glargine 40 UNITS in Pre-Filled Syringe SC SCH (20:13)
[2019-07-13] MEDS: Aspirin 81 mg Enteric Coated Tablet PO SCH (20:18)
[2019-07-13] MEDS: Senokot S 8.6-50 MG TAB PO SCH (20:18)
[2019-07-13] MEDS: Cyclobenzaprine 10 MG TAB PO SCH (20:19)
[2019-07-13] MEDS: Rosuvastatin 20 MG TAB PO SCH (20:19)
[2019-07-13] MEDS: metFORMIN 500 MG TAB PO SCH (20:19)
[2019-07-13] MEDS: diphenhydrAMINE 25 MG CAP PO SCH (20:19)
[2019-07-13] MEDS: Gabapentin 300 MG CAP PO SCH (20:20)
[2019-07-13] MEDS: Lisinopril 20 MG TAB PO SCH (20:20)
[2019-07-13] MEDS ORDERED: Lisinopril 20 MG TAB PO SCH (21:00)
[2019-07-13] MEDS ORDERED: Non-Formulary Item 1 EACH (Insulin Glargine,Hum.Rec.Anlog [Lantus Solostar] 40 UNIT) SQ SCH (21:00)
[2019-07-13] MEDS ORDERED: Insulin Glargine 30 UNITS in Pre-Filled Syringe 1 EACH SC SCH (21:00)
[2019-07-13] MEDS ORDERED: Insulin Glargine 40 UNITS in Pre-Filled Syringe 1 EACH SC SCH (21:00)
[2019-07-13] MEDS: traMADol HCl 50 MG TAB PO PRN (21:05)
[2019-07-13] MEDS: NEXIUM 40 MG PO SCH (21:05)
--- NOTE | 2019-07-13 23:41 | PDOC.HOSPP ---
- Subjective Encounter Date: 07/13/19 Encounter Time: 16:00 Subjective: Patient seen and examined for med mngt. Pain controlled. No new complaints. - Objective Vital Signs & Weight: Vital Signs (12 hours) Temp Pulse Resp BP BP Pulse Ox 07/13/19 20:20 134/68 07/13/19 19:43 98.2 F 96 16 134/68 98 07/13/19 16:00 99 07/13/19 13:18 97.4 F L 100 20 120/57 L 98 Weight Weight 233 lb I&O: 07/12/19 07/13/19 07/14/19 06:59 06:59 06:59 Intake Total 1800 Output Total 1100 Balance 700 Result Diagrams: 07/13/19 07:34 07/13/19 07:34 Additional Labs: Accuchecks 07/13/19 07/13/19 20:16 15:45 POC Glucose 235 H 396 H EKG Reviewed by me: Yes (SR) Hospitalist ROS - Review of Systems Respiratory: denies: cough, dry, shortness of breath, hemoptysis, SOB with excertion, pleuritic pain, sputum, wheezing, other Cardiovascular: denies: chest pain, palpitations, orthopnea, paroxysmal noc. dyspnea, edema, light headedness, other - Medication Medications: Active Medications Generic Name Dose Route Start Last Admin Trade Name Freq PRN Reason Stop Dose Admin Hydrocodone Bitart/Acetaminophen 2 tab 07/13/19 13:18 07/13/19 23:08 [place] 10/325 PO 2 tab Q4H PRN Administration Severe Pain (7-10) Aspirin 81 mg 07/13/19 21:00 07/13/19 20:18 Ecotrin PO 81 mg BID REECE Administration Cholecalciferol 5,000 units 07/13/19 21:00 07/13/19 20:20 Vitamin D3 PO 5,000 units HS REECE Administration Cyclobenzaprine HCl 10 mg 07/13/19 21:00 07/13/19 20:19 Flexeril PO 10 mg HS REECE Administration Diphenhydramine HCl 50 mg 07/13/19 21:00 07/13/19 20:19 Benadryl PO 50 mg HS REECE Administration Gabapentin 1,200 mg 07/13/19 21:00 07/13/19 20:20 Neurontin PO 1,200 mg HS REECE Administration Gemfibrozil 600 mg 07/13/19 16:30 07/13/19 16:47 Lopid PO 600 mg BID-AC REECE Administration Sodium Chloride 1,000 mls @ 100 mls/hr 07/13/19 13:18 07/13/19 16:59 Normal Saline 0.9% IV 1,000 mls .Q10H REECE Administration Insulin Glargine 40 units/ 0.4 mls @ 0 mls/hr 07/13/19 21:00 07/13/19 20:13 Miscellaneous Medication SC 0.4 mls HS REECE Administration Ketorolac Tromethamine 30 mg 07/13/19 12:00 07/13/19 23:04 Toradol IVP 07/15/19 06:01 30 mg Q6HR REECE Administration Ketorolac Tromethamine 30 mg 07/13/19 18:00 07/13/19 19:06 Toradol IVP 07/15/19 18:01 Not Given Q6HR REECE Lisinopril 20 mg 07/13/19 21:00 07/13/19 20:20 Zestril PO 20 mg BID REECE Administration Metformin HCl 1,000 mg 07/13/19 21:00 07/13/19 20:19 Glucophage PO 1,000 mg BID REECE Administration Mometasone Furoate 2 puff 07/13/19 18:30 07/13/19 19:20 Asmanex Twisthaler INH 2 puff 1830 REECE Administration Nexium (Esomeprazole 0 each 07/13/19 21:00 07/13/19 21:05 ) 40mg PO 1 each HS REECE Administration Rosuvastatin Calcium 40 mg 07/13/19 21:00 07/13/19 20:19 Crestor PO 40 mg HS REECE Administration Senna/Docusate Sodium 2 tab 07/13/19 21:00 07/13/19 20:18 Senokot S PO 2 tab BID REECE Administration Tramadol HCl 100 mg 07/13/19 13:18 07/13/19 21:05 Ultram PO 100 mg Q6H PRN Administration Moderate Pain (4-6) - Exam General Appearance: NAD Heart: RRR, no gallops Respiratory: CTAB, no rales Gastrointestinal: soft, non-tender, normal bowel sounds Extremities: no cyanosis, no edema Hosp A/P - Plan DVT proph w/SCDs DM2 HTN Obesity BMI 35.4 HLD GERD tob dep Chronic low back pain PLAN: Diet changed to regular per patient req Cont Lantus at home dose Add sliding scale Cont Amlodipine Cont other meds as above
[2019-07-14] MEDS: Sodium Chloride 0.9% 1,000 ML IV SCH ×3 (00:20→22:06)
[2019-07-14] MEDS: Ketorolac Tromethamine 30 MG/ML VIAL IVP SCH ×4 (00:22→17:38)
[2019-07-14] MEDS: Fentanyl 100 MCG/2 ML VIAL SLOW IVP PRN ×7 (01:00→11:10)
[2019-07-14] MEDS: HYDROcodone/Acetaminophen 10/325 mg Tablet PO PRN ×3 (04:30→22:02)
[2019-07-14 05:08] LABS: Hemoglobin 9.8 g/dL (14.0-18.0); Mean Corpuscular HGB CONC 32.4 g/dL (32.0-36.0); Mean Corpuscular Hemoglobin 28.3 pg (27.0-31.0); Mean Corpuscular Volume 87.4 fL (78.0-98.0); Mean Platelet Volume 9.7 fL (7.4-10.4); Platelet Count 178 thou/uL (130-400); RBC Distribution Width 12.8 % (11.5-14.5); Red Blood Cell (RBC) Count 3.45 mill/uL (4.70-6.10); White Blood Cell (WBC) Count 9.1 thou/uL (4.8-10.8)
[2019-07-14] MEDS: traMADol HCl 50 MG TAB PO PRN (06:11)
[2019-07-14] MEDS: Gemfibrozil 600 MG TAB PO SCH ×2 (06:12→17:38)
[2019-07-14] MEDS: Insulin Regular 300 UNITS/3 ML VIAL SC PRN ×2 (06:12→11:37)
[2019-07-14] MEDS: Amlodipine 5 MG TAB PO SCH (08:35)
[2019-07-14] MEDS: Lisinopril 20 MG TAB PO SCH ×2 (08:35→20:22)
[2019-07-14] MEDS: Aspirin 81 mg Enteric Coated Tablet PO SCH ×2 (08:35→20:20)
[2019-07-14] MEDS: Hydrochlorothiazide 25 MG TAB PO SCH (08:35)
[2019-07-14] MEDS: metFORMIN 500 MG TAB PO SCH ×2 (08:35→20:21)
[2019-07-14] MEDS: Multivitamin W/ Minerals 1 TAB PO SCH (08:35)
[2019-07-14] MEDS: Senokot S 8.6-50 MG TAB PO SCH ×2 (08:36→20:22)
[2019-07-14] MEDS ORDERED: Hydrochlorothiazide 25 MG TAB PO SCH (09:00)
[2019-07-14] MEDS ORDERED: fentaNYL Citrate/PF 2,000 MCG in Sodium Chloride 0.9% 60 ML IV PRN (12:25)
[2019-07-14] MEDS: Mometasone Furoate 120 PUFF 220 MCG INH SCH (20:13)
--- NOTE | 2019-07-14 20:14 | PDOC.HOSPP ---
- Subjective Encounter Date: 07/14/19 Encounter Time: 19:15 Subjective: Patient seen and examined for med mngt. Pain controlled. No CP/SOB. No new complaints. No overnight events - Objective Vital Signs & Weight: Vital Signs (12 hours) Temp Pulse Resp BP BP Pulse Ox 07/14/19 19:40 98.3 F 95 18 148/78 H 99 07/14/19 15:58 98.5 F 102 H 22 H 145/76 H 99 07/14/19 10:33 97.5 F L 101 H 20 145/82 H 97 07/14/19 08:35 96 144/81 H Weight Admit Weight 233 lb Weight 233 lb I&O: 07/13/19 07/14/19 07/15/19 06:59 06:59 06:59 Intake Total 1800 2810 Output Total 1500 Balance 300 2810 Result Diagrams: 07/14/19 04:22 07/13/19 07:34 Additional Labs: Accuchecks 07/14/19 07/14/19 07/14/19 16:06 10:36 05:41 POC Glucose 104 181 H 182 H 07/14/19 07/13/19 02:04 20:16 POC Glucose 181 H 235 H Hospitalist ROS - Review of Systems Respiratory: denies: cough, dry, shortness of breath, hemoptysis, SOB with excertion, pleuritic pain, sputum, wheezing, other Cardiovascular: denies: chest pain, palpitations, orthopnea, paroxysmal noc. dyspnea, edema, light headedness, other - Medication Medications: Active Medications Generic Name Dose Route Start Last Admin Trade Name Tommieq PRN Reason Stop Dose Admin Amlodipine Besylate 5 mg 07/14/19 09:00 07/14/19 08:35 Norvasc PO 5 mg QAM REECE Administration Aspirin 81 mg 07/13/19 21:00 07/14/19 08:35 Ecotrin PO 81 mg BID REECE Administration Cholecalciferol 5,000 units 07/13/19 21:00 07/13/19 20:20 Vitamin D3 PO 5,000 units HS REECE Administration Cyclobenzaprine HCl 10 mg 07/13/19 21:00 07/13/19 20:19 Flexeril PO 10 mg HS REECE Administration Diphenhydramine HCl 50 mg 07/13/19 21:00 07/13/19 20:19 Benadryl PO 50 mg HS REECE Administration Gabapentin 1,200 mg 07/13/19 21:00 07/13/19 20:20 Neurontin PO 1,200 mg HS REECE Administration Gemfibrozil 600 mg 07/13/19 16:30 07/14/19 17:38 Lopid PO 600 mg BID-AC REECE Administration Hydrochlorothiazide 25 mg 07/14/19 09:00 07/14/19 08:35 Hydrochlorothiazide PO 25 mg DAILY REECE Administration Ropivacaine 250 ml/ Device 250 mls @ 10 mls/hr 07/13/19 09:31 07/14/19 11:37 NERVE BLCK 07/16/19 09:30 250 mls INF REECE Administration Sodium Chloride 1,000 mls @ 100 mls/hr 07/13/19 13:18 07/14/19 10:12 Normal Saline 0.9% IV Not Given .Q10H REECE Insulin Glargine 40 units/ 0.4 mls @ 0 mls/hr 07/13/19 21:00 07/13/19 20:13 Miscellaneous Medication SC 0.4 mls HS REECE Administration Fentanyl Citrate 2,000 mcg/ 100 mls @ 0 mls/hr 07/14/19 12:25 07/14/19 13:16 Sodium Chloride IV 100 mls INF PRN Administration Pain As Directed Insulin Human Regular 0 units 07/13/19 23:28 07/14/19 11:37 Humulin R SC 2 unit .MODERATE SLIDING SC PRN Administration Moderate Correctional Scale Iron/Minerals/Multivitamins 1 tab 07/14/19 09:00 07/14/19 08:35 Theragran M PO 1 tab DAILY REECE Administration Ketorolac Tromethamine 30 mg 07/13/19 12:00 07/14/19 17:38 Toradol IVP 07/15/19 06:01 30 mg Q6HR REECE Administration Lisinopril 20 mg 07/13/19 21:00 07/14/19 08:35 Zestril PO 20 mg BID REECE Administration Metformin HCl 1,000 mg 07/13/19 21:00 07/14/19 08:35 Glucophage PO 1,000 mg BID REECE Administration Mometasone Furoate 2 puff 07/13/19 18:30 07/13/19 19:20 Asmanex Twisthaler INH 2 puff 1830 REECE Administration Nexium (Esomeprazole 0 each 07/13/19 21:00 07/13/19 21:05 ) 40mg PO 1 each HS REECE Administration Rosuvastatin Calcium 40 mg 07/13/19 21:00 07/13/19 20:19 Crestor PO 40 mg HS REECE Administration Senna/Docusate Sodium 2 tab 07/13/19 21:00 07/14/19 08:36 Senokot S PO 2 tab BID REECE Administration Sodium Chloride 10 ml 07/13/19 13:18 07/14/19 08:34 Flush - Normal Saline IVF 10 ml PRN PRN Administration Saline Flush - Exam Heart: RRR, no gallops Respiratory: no wheezes, no rales Gastrointestinal: non-tender, non-distended Hosp A/P - Plan DM2 HTN Obesity BMI 35.4 HLD GERD tob dep Chronic low back pain PLAN: Cont Regular diet per patient request Cont Lantus with sliding scale Cont Amlodipine Cont other meds as above
[2019-07-14] MEDS: Gabapentin 300 MG CAP PO SCH (20:20)
[2019-07-14] MEDS: Cyclobenzaprine 10 MG TAB PO SCH (20:21)
[2019-07-14] MEDS: diphenhydrAMINE 25 MG CAP PO SCH (20:21)
[2019-07-14] MEDS: Rosuvastatin 20 MG TAB PO SCH (20:22)
[2019-07-14] MEDS: Insulin Glargine 40 UNITS in Pre-Filled Syringe SC SCH (20:23)
[2019-07-14] MEDS: NEXIUM 40 MG PO SCH (20:23)
[2019-07-15] MEDS: Ketorolac Tromethamine 30 MG/ML VIAL IVP SCH ×2 (00:17→06:05)
[2019-07-15] MEDS: HYDROcodone/Acetaminophen 10/325 mg Tablet PO PRN ×2 (03:17→09:30)
[2019-07-15] MEDS: Sodium Chloride 0.9% 1,000 ML IV SCH (05:00)
[2019-07-15] MEDS: Insulin Regular 300 UNITS/3 ML VIAL SC PRN (06:05)
[2019-07-15] MEDS: Gemfibrozil 600 MG TAB PO SCH (06:05)
[2019-07-15 07:58] VITALS: BP 124/78; TEMP 98.7
[2019-07-15] MEDS: Aspirin 81 mg Enteric Coated Tablet PO SCH (08:49)
[2019-07-15] MEDS: metFORMIN 500 MG TAB PO SCH (08:49)
[2019-07-15] MEDS: Lisinopril 20 MG TAB PO SCH (08:50)
[2019-07-15] MEDS: Amlodipine 5 MG TAB PO SCH (08:50)
[2019-07-15] MEDS: Multivitamin W/ Minerals 1 TAB PO SCH (08:50)
[2019-07-15] MEDS: Hydrochlorothiazide 25 MG TAB PO SCH (08:50)
[2019-07-15] MEDS: Senokot S 8.6-50 MG TAB PO SCH (08:51)
--- NOTE | 2019-07-15 13:35 | EKG ---
Test Reason : PREOP Blood Pressure : / mmHG Vent. Rate : 082 BPM Atrial Rate : 082 BPM P-R Int : 148 ms QRS Dur : 116 ms QT Int : 378 ms P-R-T Axes : 046 -44 022 degrees QTc Int : 441 ms Normal sinus rhythm Left axis deviation Left ventricular hypertrophy with QRS widening Abnormal ECG When compared with ECG of 19-MAR-2019 12:02, No significant change was found Confirmed by KELLY HAYNES (2) on 07/15/2019 1:35:33 PM Referred By: PHUONG Confirmed By:KELLY HAYNES
--- NOTE | 2019-07-16 14:06 | DIS ---
DATE OF ADMISSION: 07/13/2019 DATE OF DISCHARGE: 07/15/2019 This is Fela Hawthorne PA-C dictating a report for Cesar Burt MD. CONSULTANTS: Include [facility]. PREOPERATIVE DIAGNOSIS: Degenerative arthritis, left knee. POSTOPERATIVE DIAGNOSIS: Degenerative arthritis, left knee. PROCEDURE PERFORMED: Left total knee replacement with computer-assisted navigation system with cemented [place] triathlon components. BRIEF HOSPITAL COURSE: This is a 59-year-old male who was indicated for the above-mentioned procedure. He recently underwent the same procedure on the contralateral leg several months ago and did well. He failed conservative measures and was indicated for this procedure on the left side. He did well in the operative suite and postoperatively was admitted to [place] [address] in [facility]. Here he worked with physical and occupational therapist. He did well in his postoperative course. His pain was managed by [facility]. On postoperative day #2, he was discharged home with home health physical therapy. DISCHARGE DISPOSITION: Home. DISCHARGE CONDITION: Stable. DISCHARGE INSTRUCTIONS: The patient will follow up with Dr. Burt as scheduled. He will follow up with Physical therapy as scheduled. He will keep his surgical site clean, dry, and intact until followup. MEDICATIONS: See MAR. Job ID: [id number]
== END 2019-07-15 10:50 | disposition home or self-care (01) ==
LOC: SDC 06:51 → SJJU 13:18 → SDC 07-15 10:50
PROVIDERS: ATTEND Orthopaedic Surgery
PROC: 0SRD0J9 Replacement of Left Knee Joint with Synthetic Substitute, Cemented, Open Approach (ICD-10-PCS; principal; 2019-07-13)
PROC: 8E0YXBZ Computer Assisted Procedure of Lower Extremity (ICD-10-PCS; 2019-07-13)
PROC: 3E0T3BZ Introduction of Anesthetic Agent into Peripheral Nerves and Plexi, Percutaneous Approach (ICD-10-PCS; 2019-07-13)
PROC: 3E0T3BZ Introduction of Anesthetic Agent into Peripheral Nerves and Plexi, Percutaneous Approach (ICD-10-PCS; 2019-07-13)
DX: M17.12 Unilateral primary osteoarthritis, left knee (principal); G89.18 Other acute postprocedural pain; I12.9 Hypertensive chronic kidney disease with stage 1 through stage 4 chronic kidney disease, or unspecified chronic kidney disease; E11.22 Type 2 diabetes mellitus with diabetic chronic kidney disease; N18.1 Chronic kidney disease, stage 1; G89.29 Other chronic pain; M54.5 Low back pain; K21.9 Gastro-esophageal reflux disease without esophagitis; N40.0 Benign prostatic hyperplasia without lower urinary tract symptoms; E78.5 Hyperlipidemia, unspecified; N52.9 Male erectile dysfunction, unspecified; F17.210 Nicotine dependence, cigarettes, uncomplicated; E66.9 Obesity, unspecified; Z68.35 Body mass index [BMI] 35.0-35.9, adult; Z79.4 Long term (current) use of insulin; Z79.82 Long term (current) use of aspirin; Z79.899 Other long term (current) drug therapy; Z88.0 Allergy status to penicillin; Z96.651 Presence of right artificial knee joint; Z98.1 Arthrodesis status
CPT/HCPCS: 20985; 27447; 64445; 64448; 73560; 80048; 81001; 82962; 85025; 85027; 85610; 85730; 93005; 94640 ×2; 97116 ×3; 97139 ×3; 97150; 98961; C1713; C1776; J3010; 36415; 36416; 93010; J0670; J1815; J1885; J1956; J2001; J2250; J2270; J2405; J2704; J2795; J3490; Q0163; S0020

== ENCOUNTER 2019-10-09 11:00 | Emergency (ER) | payer MEDICARE, MEDICAID | END 2019-10-09 11:48 | disposition home or self-care (01) | LOC: ERS 11:00 | DX: B35.4 Tinea corporis (principal); E11.9 Type 2 diabetes mellitus without complications; E78.5 Hyperlipidemia, unspecified; I10 Essential (primary) hypertension; F17.210 Nicotine dependence, cigarettes, uncomplicated | CPT/HCPCS: 99282 ==

== ENCOUNTER 2019-12-09 06:28 | Outpatient (CLI) | payer MEDICARE, MEDICAID, OTHER ==
--- NOTE | 2019-12-09 13:27 | RAD ---
EXAM: CHEST TWO VIEWS: 12/09/19 HISTORY: Preoperative evaluation. COMPARISON: 11/18/18. FINDINGS: Heart size is normal. The lungs are clear. IMPRESSION: No significant acute intrathoracic disease. Stable from prior study. POS: [facility]
[2019-12-09 14:00] LABS: Hemoglobin 12.7 g/dL (14.0-18.0); Mean Corpuscular HGB CONC 33.2 g/dL (32.0-36.0); Mean Corpuscular Hemoglobin 28.6 pg (27.0-31.0); Mean Corpuscular Volume 86.2 fL (78.0-98.0); Mean Platelet Volume 11.3 fL (7.4-10.4); Platelet Count 210 thou/uL (130-400); RBC Distribution Width 12.7 % (11.5-14.5); Red Blood Cell (RBC) Count 4.45 mill/uL (4.70-6.10)
[2019-12-09 14:02] LABS: INR-International Normal Ratio 0.9
[2019-12-09 14:03] LABS: PTT 62.7 sec (22.9-36.1)
[2019-12-09 14:20] LABS: Anion Gap 11 mmol/L (10-20); BUN (Urea Nitrogen) 16 mg/dL (8.4-25.7); Calc. Creatinine Clearance 0 mL/min (70-130); Calcium 9.4 mg/dL (7.8-10.44); Carbon Dioxide 27 mmol/L (22-29); Chloride 108 mmol/L (98-107); Estimated GFR-MDRD 84; Glucose 203 mg/dL (70-105); Potassium 4.6 mmol/L (3.5-5.1); Sodium 141 mmol/L (136-145)
[2019-12-09 14:23] LABS: Bacteria/HPF None Seen HPF (None Seen); Bilirubin Negative (Negative); Blood, Urine Negative (Negative); Clarity Clear (Clear); Glucose, Urine (Dipstick) 300 mg/dL (Negative); Leukocyte Negative Leu/uL (Negative); Nitrite Negative (Negative); Protein, Urine (Dipstick) 70 mg/dL (Neg-Trace); RBC/HPF 0-3 HPF (0-3); Squamous Epithelial 0-3 HPF (0-3); Urobilinogen Normal mg/dL (Less than 2); WBC/HPF 0-3 HPF (0-3)
== END 2019-12-09 06:29 | disposition home or self-care (01) ==
LOC: LABBT 06:28
PROVIDERS: ATTEND Urology
DX: Z01.818 Encounter for other preprocedural examination (principal); Z11.59 Encounter for screening for other viral diseases; Z12.5 Encounter for screening for malignant neoplasm of prostate; C61 Malignant neoplasm of prostate; N40.1 Benign prostatic hyperplasia with lower urinary tract symptoms; R35.0 Frequency of micturition; R31.29 Other microscopic hematuria; N43.3 Hydrocele, unspecified; E13.9 Other specified diabetes mellitus without complications; R79.1 Abnormal coagulation profile; N52.9 Male erectile dysfunction, unspecified; N28.9 Disorder of kidney and ureter, unspecified; R80.0 Isolated proteinuria; N35.819 Other urethral stricture, male, unspecified site; N47.6 Balanoposthitis; Z90.79 Acquired absence of other genital organ(s)
CPT/HCPCS: 71046; 80048; 81001; 85027; 85610; 85730; 87086; U0003; 87635; 93005; 93010

== ENCOUNTER 2019-12-14 05:59 | Day surgery (SDC) | payer MEDICARE, MEDICAID ==
[2019-12-08 14:22] VITALS: BMI 36.9
[2019-12-14] MEDS ORDERED: cefTRIAXone\\ROCEPHIN 2 GM VIAL ONE (06:31)
[2019-12-14] MEDS ORDERED: Sodium Chloride 0.9% 100 ML ONE (06:31)
[2019-12-14] MEDS ORDERED: Levofloxacin 500 mg/D5W 100 ml Premix Bag ONE (06:31)
[2019-12-14] MEDS ORDERED: Fentanyl 100 MCG/2 ML VIAL ONE (06:34)
[2019-12-14] MEDS ORDERED: Bupivacaine 0.25% HCL 30 ML VIAL ONE (07:00)
[2019-12-14] MEDS ORDERED: Lidocaine 1% (PF) 30 ML VIAL ONE (07:00)
[2019-12-14] MEDS ORDERED: Bacitracin Zinc Ointment 30 gm TUBE ONE (07:00)
[2019-12-14] MEDS ORDERED: Midazolam HCl 2 mg/2 ml Vial ONE ×2 (07:08→07:22)
[2019-12-14] MEDS ORDERED: Famotidine/PF 20 mg/2ml Vial ONE (07:23)
--- NOTE | 2019-12-14 09:44 | OP ---
DATE OF PROCEDURE: 12/14/2019 PREOPERATIVE DIAGNOSES: 1. A 59-year-old male with history of pathologic T1a [place]az[place] score 3+3 prostate cancer. 2. Status post transurethral resection of the prostate, direct vision internal urethrotomy of urethral stricture. 3. History of recurrent urinary tract infection, resolved. 4. Balanoposthitis with history of diabetes. 5. History of elevated PTT, lupus anticoagulant, cleared to proceed with surgery without further hematologic intervention. POSTOPERATIVE DIAGNOSES: 1. A 59-year-old male with history of pathologic T1a [place] score 3+3 prostate cancer. 2. Status post transurethral resection of the prostate, direct vision internal urethrotomy of urethral stricture. 3. History of recurrent urinary tract infection, resolved. 4. Balanoposthitis with history of diabetes. 5. History of elevated PTT, lupus anticoagulant, cleared to proceed with surgery without further hematologic intervention. PROCEDURE PERFORMED: Transrectal ultrasound, 12-core needle prostate biopsy, volume study, circumcision. ANESTHESIA: LMA general. SPECIMEN: 1. Foreskin for permanent. 2. 12-core needle prostate biopsy. COMPLICATIONS: None apparent. DISPOSITION: To recovery room in stable condition. INDICATIONS FOR PROCEDURE AND HISTORY: Mr. Charles is a 59-year-old male with history of diabetes, who is well known to me with history of BPH, recurrent UTI, pathologic T1a Corazon score 3+3 prostate cancer found incidentally on a TURP specimen. He presents today for staging prostate biopsy. He is on active surveillance for his low-grade, low volume prostate cancer. He also presented to my office, warranting a circumcision as he states that he has difficulty and pain with retraction of the foreskin. Physical exam demonstrated foreskin easily retracts , however, with evidence of balanoposthitis. Risks and complications of both procedures were reviewed with him in detail including, but not limited to: Bleeding, pain, infection, injury to adjacent organs, penile curvature, bleeding , chronic pain. Possible secondary procedure due to bleeding was reviewed with him in detail. All questions were answered to his satisfaction and desired to proceed. DESCRIPTION OF PROCEDURE: After an informed consent was signed, the patient was taken to the operating room, placed in supine position with the genital area prepped and draped in the usual surgical sterile fashion. The genital area was formally prepped and draped and the foreskin retracted. There was evidence of some glandular adhesions from frenulum; however, this demonstrates no induration or erythema of concern. The foreskin was retracted with ease. We marked the foreskin at the level of the coronal sulcus. Using a 15 blade, circumferential incision was made marking the level of the foreskin at the level of coronal sulcus. The ring of foreskin was then subsequently divided with electrocautery. Subcutaneous fascia of the dartos was inspected and we used cautery to obtain intermittent hemostasis of venous bleeding. Good hemostasis was obtained. At this time, this skin was reapproximated using 2-0 chromic in a four-quadrant fashion at 12, 3, 9, and 6 o'clock position. Interrupted sutures then were placed using 3-0 chromic. Good approximation was noted and Coban pressure dressing was applied. Approximately 8-10 mL of 0.25% Marcaine utilized for penile block. At this time, he was transitioned to a lateral decubitus position and a transrectal ultrasound prostate probe was entered. BRANDEE demonstrated no discrete nodularity of concern. Prostate volume study again demonstrates minimal volume of his prostate, measuring length of 2.0, width of 3.5, height of 1.6, volume of 6 g. Twelve needle core prostate biopsy was obtained without significant issues. He tolerated the procedure well and was transported to the recovery room in stable condition. He was discharged with tramadol #30, 50 mg 1 to 2 p.o. q.6 hours p.r.n.; Omnicef 300 mg one p.o. b.i.d. for five days. He will follow up with me next week to review pathology. Job ID: [id number]
[2019-12-14] MEDS ORDERED: Ondansetron PF 4 MG/2 ML Vial ONE (11:41)
[2019-12-14] MEDS ORDERED: Metoclopramide HCl 10 MG/2 ML VIAL ONE (11:41)
[2019-12-14] MEDS ORDERED: PHENYLEPHRINE-NS 100 MCG/ML 10 ML SYRINGE ONE (11:41)
[2019-12-14] MEDS ORDERED: PROPOFOL 200 MG/20 ML VIAL ONE (11:41)
[2019-12-14] MEDS ORDERED: Lidocaine 1% PF 5 ML VIAL ONE (11:41)
== END 2019-12-14 10:32 | disposition home or self-care (01) ==
LOC: SDC 05:59
PROVIDERS: ATTEND Urology
PROC: 0VB03ZX Excision of Prostate, Percutaneous Approach, Diagnostic (ICD-10-PCS; principal; 2019-12-14)
PROC: 0VTTXZZ Resection of Prepuce, External Approach (ICD-10-PCS; 2019-12-14)
DX: N47.6 Balanoposthitis (principal); C61 Malignant neoplasm of prostate; N52.9 Male erectile dysfunction, unspecified; N40.1 Benign prostatic hyperplasia with lower urinary tract symptoms; R35.0 Frequency of micturition; G89.29 Other chronic pain; M54.9 Dorsalgia, unspecified; K21.9 Gastro-esophageal reflux disease without esophagitis; E78.5 Hyperlipidemia, unspecified; I12.9 Hypertensive chronic kidney disease with stage 1 through stage 4 chronic kidney disease, or unspecified chronic kidney disease; E11.22 Type 2 diabetes mellitus with diabetic chronic kidney disease; N18.1 Chronic kidney disease, stage 1; F17.210 Nicotine dependence, cigarettes, uncomplicated; E66.01 Morbid (severe) obesity due to excess calories; Z68.36 Body mass index [BMI] 36.0-36.9, adult; Z87.440 Personal history of urinary (tract) infections; Z79.4 Long term (current) use of insulin; Z79.899 Other long term (current) drug therapy; Z88.0 Allergy status to penicillin; Z88.8 Allergy status to other drugs, medicaments and biological substances; Z98.1 Arthrodesis status
CPT/HCPCS: 36416; 88304; 88305; J0696; J1956; J2001; J2250; J2405; J2704; J2765; J3010; J3490; S0020; S0028

== ENCOUNTER 2020-12-28 08:01 | Outpatient (CLI) | payer MEDICARE, MEDICAID | END 2020-12-28 08:02 | disposition home or self-care (01) | LOC: ULT 08:01 | PROVIDERS: ATTEND Internal Medicine Nephrology | DX: R80.9 Proteinuria, unspecified (principal) | CPT/HCPCS: 76770 ==

== ENCOUNTER 2023-01-31 08:32 | Outpatient (CLI) | payer OTHER, MEDICAID | END 2023-01-31 08:33 | disposition home or self-care (01) | LOC: RAD 08:32 | PROVIDERS: ATTEND Family Medicine | DX: Z01.818 Encounter for other preprocedural examination (principal) | CPT/HCPCS: 71046 ==

== ENCOUNTER 2025-06-08 14:06 | Outpatient (CLI) | payer OTHER, MEDICAID | END 2025-06-08 14:07 | disposition home or self-care (01) | LOC: BICCT 14:06 | PROVIDERS: ATTEND Family Medicine | DX: Z12.2 Encounter for screening for malignant neoplasm of respiratory organs (principal); F17.211 Nicotine dependence, cigarettes, in remission | CPT/HCPCS: 71271 ==